=== PATIENT | female | born 1955 | race African-American/Black ===

== ENCOUNTER 2024-03-26 10:40 | Inpatient (IN) | payer MEDICARE, OTHER ==
[~2024-03-26] VITALS: Ht 152.4 cm; Wt 120.0 kg
[2024-03-26] MEDS: SODIUM CHLORIDE 0.9% 500 ML IVB ONE (11:15)
[2024-03-26] MEDS: ONDANSETRON HCL 4 MG/2 ML VIAL IV ONE ×2 (11:15→20:40)
--- NOTE | 2024-03-26 11:32 | ED.PDOC ---
GI ASSESSMENT HPI Comments 68-year-old female who comes in with chief complaint of vomiting since March 16. The patient denies any abdominal pain or diarrhea. She states that she tried some Dramamine but it does not seem to be helping. The patient is unable to keep any food down at this time. The patient denies any fever or chills. She was able to ambulate into the emergency department's with a cane. The patient recently moved from [place] and does not have a primary care doctor. Chief Complaint: Nausea/Vomiting Time Seen by MD: 10:47 Primary Care Provider: BERNADETTE Reviewed Notes: Nurses Notes, Medications, Allergies (Allergies to sulfa) Allergies: Coded Allergies: Sulfa Antibiotics (Verified Allergy, Unknown, 03/26/24) Information Source: Patient Mode of Arrival: The patient was ambulates with a cane Timing: Days Duration: Since onset Prehospital treatment: None Quality: None Vomitus: Bilious Stool: Normal Severity: Moderate Recent: None Recent Hx of: None Pain Location: None Modifying Factors: Nothing Associated sign and symptoms: Nausea, Vomiting Past Medical History PAST MEDICAL HISTORY: DM, High Lipids, HTN, Thyroid, TIA Surgical History: Hysterectomy Surgical History (Other): Nasal polyp surgery, right ankle surgery [employer] History: No Pertinent [employer] History Family History Family History: Family hx of HTN, Family hx of stroke Social History Smoker: Non-Smoker Alcohol: Denies ETOH Use Drugs: Denies Drug Use Lives In: Home Constitutional: reports: weakness; denies: chills, diaphoresis, fatigue, fever, malaise, sweats, others EENTM: denies: blurred vision, double vision, ear bleeding, ear discharge, ear drainage, ear pain, ear ringing, eye pain, eye redness, hearing loss, mouth pain, mouth swelling, nasal discharge, nose bleeding, nose congestion, nose pain, photophobia, tearing, throat pain, throat swelling, voice changes, others Respiratory: denies: cough, hemoptysis, orthopnea, SOB at rest, shortness of breath, SOB with excertion, stridor, wheezing, others Cardiovascular: denies: chest pain, dizzy spells, diaphoresis, Dyspnea on exertion, edema, irregular heart beat, left arm pain, lightheadedness, palpitations, PND, syncope, others Gastrointestinal: reports: nausea, vomiting; denies: abdomen distended, abdominal pain, blood streaked bowels, constipated, diarrhea, dysphagia, difficulty swallowing, hematemesis, melena, poor appetite, poor fluid intake, rectal bleeding, rectal pain, others Genitourinary: denies: abnormal vagina bleeding, burning, dyspareunia, dysuria, flank pain, frequency, hematuria, incontinence, pain, , vagina discharge, urgency, others Neurological: denies: dizziness, fainting, headache, left sided numbness, left sided weakness, numbness, paresthesia, pre-existing deficit, right sided numbness, right sided weakness, seizure, speech problems, tingling, tremors, weakness, others Musculoskeletal: denies: back pain, gout, joint pain, joint swelling, muscle pain, muscle stiffness, neck pain, others Integumetry: denies: bruises, change in color, change in hair/nails, dryness, laceration, lesions, lumps, rash, wounds, others Allergic/Immunocompromised: denies: Difficulty Healing, Frequent Infections, Hives, Itching, others Hematologic/Lymphatic: denies: anemia, blood clots, easy bleeding, easy bruising, swollen glands, others Endocrine: denies: excessive hunger, excessive sweating, excessive thirst, excessive urination, flushing, intolerance to cold, intolerance to heat, unexplained weight gain, unexplained weight loss, others Psychiatric: denies: anxiety, bipolar disorder, depression, hopeless, panic disorder, schizophrenia, sleepless, suicidal, others Physical Exam General Appearance: Moderate Distress HEENT: Normal ENT Inspection, Pharynx Normal, TMs Normal Neck: Full Range of Motion, Non-Tender, Normal, Normal Inspection Respiratory: Chest Non-Tender, Lungs Clear, No Accessory Muscle Use, No Respiratory Distress, Normal Breath Sounds Cardiovascular: No Edema, No JVD, No Murmur, No Gallop, Normal Peripheral Pulses, Regular Rate/Rhythm Breast Exam: Deferred Gastrointestinal: Diffuse, No Organomegaly, No Pulsatile Mass, Normal Bowel Sounds, Soft, Tenderness Genitalia: Deferred Pelvic: Deferred Rectal: Deferred Extremities: No calf tenderness, Normal capillary refill, Normal inspection, Normal range of motion, Non-tender, No pedal edema Musculoskeletal : Apperance: Normal Neurologic: Alert, agricultural commodities inspector II-XII nml as Tested, No Motor Deficits, Normal Affect, Normal Mood, No Sensory Deficits Cerebellar Function: Normal Reflexes: Normal Skin: Dry, Normal Color, Warm Lymphatic: No Adenopathy Was a procedure done? Was a procedure done?: No GI differential Dx Differential Diagnosis: Gastritis/PUD, Gastroenteritis, Pancreatitis, UTI, Electrolyte Imbalance, Food Poisoning X-Ray, Labs, Meds, VS Vital Signs Date Time Temp Pulse Resp B/P (MAP) Pulse Ox O2 Delivery O2 Flow Rate FiO2 03/26/24 10:55 97.5 94 18 151/70 (97) 97 Lab Test 03/26/24 12:01 03/26/24 10:59 Range/Units White Blood Count 8.6 4.4-10.8 10^3/uL Red Blood Count 4.97 4.0-5.20 10^6/uL Hemoglobin 15.0 12.2-16.2 g/dL Hematocrit 45.7 36.0-46.0 % Mean Corpuscular Volume 92.0 80.0-100.0 fL Mean Corpuscular Hemoglobin 30.1 28.0-32.0 pg Mean Corpuscular Hemoglobin Concent 32.7 32.0-36.0 g/dL Red Cell Distribution Width 15.4 H 11.8-14.3 % Platelet Count 268 140-450 10^3/uL Mean Platelet Volume 8.8 6.9-10.8 fL Neutrophils (%) (Auto) 56.1 37.0-80.0 % Lymphocytes (%) (Auto) 34.3 10.0-50.0 % Monocytes (%) (Auto) 6.0 0.0-12.0 % Eosinophils (%) (Auto) 2.5 0.0-7.0 % Basophils (%) (Auto) 1.1 0.0-2.0 % Neutrophils # (Auto) 4.8 1.6-8.6 10 ^3/uL Lymphocytes # (Auto) 3.0 0.4-5.4 10 ^3/uL Monocytes # (Auto) 0.5 0-1.3 10 ^3/uL Eosinophils # (Auto) 0.2 0-0.8 10 ^3/uL Basophils # (Auto) 0.1 0-0.2 10 ^3/uL Nucleated Red Blood Cells 0.1 % Sodium Level 138 136-145 mmol/L Potassium Level 2.9 L 3.5-5.1 mmol/L Chloride Level 101 98-107 mmol/L Carbon Dioxide Level 28 20-31 mmol/L Anion Gap 9 5-15 Blood Urea Nitrogen 8 L 9-23 mg/dL Creatinine 0.88 0.550-1.02 mg/dL Glomerular Filtration Rate Calc 71 >90 mL/min BUN/Creatinine Ratio 9.1 L 10.0-20.0 Serum Glucose 109 H 74-106 mg/dL Calcium Level 10.5 H 8.7-10.4 mg/dL Total Bilirubin 0.7 0.2-1.0 mg/dL Aspartate Amino Transferase (AST) 19 13-40 U/L Alanine Aminotransferase (ALT) 20 7-40 U/L Alkaline Phosphatase 82 46-116 U/L Total Protein 7.7 5.7-8.2 g/dL Albumin 4.8 3.2-4.8 g/dL Lipase 26 12-53 U/L POC Glucose 107 H 70-106 mg/dl Current Medications Medications (Trade) Dose Ordered Sig/Paula Route Start Time Stop Time Status Last Admin Ondansetron HCl (Zofran) 4 mg ONCE ONCE IV 03/26/24 11:15 03/26/24 11:16 DC 03/26/24 11:15 Sodium Chloride 500 ml @ 500 mls/hr Q1H ONCE IVB 03/26/24 11:15 03/26/24 12:14 DC 03/26/24 11:15 IV Hep-Lock was established The patient was being given normal saline as a bolus The patient was being given Zofran 4 mg IV push for the nausea and vomiting The patient has a CBC which is within normal limits The chemistry panel is within normal limits The lipase is within normal limits The patient was being admitted to the hospitalist. Images Reviewed?: Images reviewed and evaluated by me Time of 1ST Reevaluation: 11:31 Reevaluation 1ST: Unchanged Patient Education/Counseling: Diagnosis, Treatment, Prognosis Family Education/Counseling: No Family Present Departure 1 Departure Time of Disposition: 12:56 Impression: Primary Impression: Intractable vomiting Additional Impression: Generalized weakness Disposition: ADMITTED INPATIENT Admit to: Med Surg Condition: Fair Critical Care Note Critical Care Time?: No Stability Stability form required: Yes Unstable for transfer: ED Physician Assesment (Clinical assesment) Heart Score Heart Score: Heart Score Response (Comments) Value History N/A 0 EKG N/A 0 Age N/A 0 Risk Factors N/A 0 Troponin N/A 0 Total 0 LARISSA MONTGOMERY MD Mar 26, 2024 11:32
--- NOTE | 2024-03-26 11:34 | DVH ---
CLINICAL INFORMATION: 68 years old, Female; Intractable vomiting. TECHNIQUE: Axial CT images of the abdomen and pelvis were obtained without IV contrast. Coronal and sagittal reformatted images were obtained, reviewed, and stored. Evaluation of the parenchymal organs is limited without IV contrast. Evaluation of the bowel and mesentery is limited without oral contra st. All CT scans at this medical facility are performed using dose modulation techniques as appropria te to a performed exam including the following: Automated exposure control was utilized; adjustment o f the MA and/or KV according to patient size; and use of iterative reconstruction technique. CTDIvol = 26.16 mGy DLP = 1399.85 mGy-cm COMPARISON: None FINDINGS: Lung bases: Atelectasis in the lung bases. Liver: Grossly unremarkable in its noncontrast enhanced appearance. No abnormal density or focal les ion identified. Biliary: No calcified gallstones or biliary ductal dilatation. Spleen: Unremarkable. Pancreas: Moderately atrophic pancreas. Adrenal glands: Unremarkable. No mass. Kidneys: No hydronephrosis. No renal or ureteral calculi. 2.8 cm fluid density lesion in the mid to upper pole of the right kidney, likely a cyst Aorta/Vascular: Scattered atherosclerotic calcification. No abdominal aortic aneurysm. Retroperitoneum: No mass or lymphadenopathy. Bowel/mesentery: No small bowel obstruction. Appendix is not visualized. Scattered colonic diverticul a without adjacent inflammatory changes to suggest diverticulitis. Pelvic organs: Uterus is surgically absent. Bladder: Underdistended and not well evaluated. Abdominal wall: No mass or hernia. Bones: No acute fracture or suspicious intraosseous lesion. Postsurgical changes of posterior spinal fusion at L4-L5. IMPRESSION: 1. Colonic diverticulosis with no CT evidence for diverticulitis. Correlate with clinical findings. 2. No small bowel obstruction. 3. Additional nonacute findings as detailed above.
[2024-03-26 12:14] LABS: Basophils # (auto) 0.1 10 ^3/uL (0-0.2); Basophils % (auto) 1.1 % (0.0-2.0); Eosinophils # (auto) 0.2 10 ^3/uL (0-0.8); Eosinophils % (auto) 2.5 % (0.0-7.0); Hematocrit 45.7 % (36.0-46.0); Lymphocytes % (auto) 34.3 % (10.0-50.0); Mean Corpuscular Hemoglobin 30.1 pg (28.0-32.0); Mean Corpuscular Hgb Conc. 32.7 g/dL (32.0-36.0); Monocytes # (auto) 0.5 10 ^3/uL (0-1.3); Neutrophils # (auto) 4.8 10 ^3/uL (1.6-8.6); Neutrophils % (auto) 56.1 % (37.0-80.0); Nucleated Red Blood Cells % 0.1 %; Platelet Count (auto) 268 10^3/uL (140-450); Red Blood Cells 4.97 10^6/uL (4.0-5.20); Red Cell Distribution Width 15.4 % (11.8-14.3); White Blood Cell 8.6 10^3/uL (4.4-10.8)
[2024-03-26 12:39] LABS: Alanine Aminotransferase 20 U/L (7-40); Alkaline Phosphatase 82 U/L (46-116); Anion Gap 9 (5-15); Aspartate Aminotransferase 19 U/L (13-40); BUN/Creatinine Ratio 9.1 (10.0-20.0); Carbon Dioxide 28 mmol/L (20-31); Chloride 101 mmol/L (98-107); Lipase 26 U/L (12-53); Sodium 138 mmol/L (136-145)
[2024-03-26 12:40] LABS: Albumin 4.8 g/dL (3.2-4.8); Bilirubin, Total 0.7 mg/dL (0.2-1.0); Blood Urea Nitrogen 8 mg/dL (9-23); Calcium 10.5 mg/dL (8.7-10.4); Glucose 109 mg/dL (74-106); Potassium 2.9 mmol/L (3.5-5.1); Total Protein 7.7 g/dL (5.7-8.2)
[2024-03-26 13:56] LABS: Urine Bacteria None Seen /hpf (None Seen)
[2024-03-26 14:11] LABS: Urine Blood Negative /uL (Negative); Urine Clarity Turbid (Clear); Urine Color Yellow (Yellow); Urine Mucus FEW (None Seen); Urine Protein, UAD TRACE (Negative); Urine Squamous Epithelial Cell FEW /hpf (<5); Urine Urobilinogen 2 mg/dL (Negative); Urine WBC 13 /HPF (0-5)
[2024-03-26] MEDS: MORPHINE SULFATE 4 MG/ML SYR/VIAL IV ONE (20:40)
[2024-03-26] MEDS: POTASSIUM EFFERVESENT TAB 25 MEQ PO ONE ×2 (21:21→21:42)
[2024-03-26] MEDS: SODIUM CHLORIDE 0.9% 1,000 ML IV ONE (21:22)
[2024-03-26] MEDS: cefTRIAXone 1GM/50ML D5W 50 ML IV ONE (21:22)
[2024-03-26] MEDS: SODIUM CHLORIDE 0.9% 1,000 ML IV SCH (21:30)
[2024-03-26] MEDS ORDERED: MORPHINE SULFATE INJ 2 MG/ml SYRG IV PRN (21:30)
[2024-03-26] MEDS ORDERED: NITROGLYCERIN 0.4 MG SL TAB SL PRN (21:30)
[2024-03-26] MEDS: PANTOPRAZOLE 40 MG/10 ML VIAL INJ IV SCH (21:55)
[2024-03-26 22:12] LABS: Alanine Aminotransferase 21 U/L (7-40); Albumin 4.7 g/dL (3.2-4.8); Alkaline Phosphatase 78 U/L (46-116); Anion Gap 12 (5-15); Aspartate Aminotransferase 30 U/L (13-40); BUN/Creatinine Ratio 7.7 (10.0-20.0); Carbon Dioxide 23 mmol/L (20-31); Chloride 102 mmol/L (98-107); Lipase 27 U/L (12-53); Magnesium 2.1 mg/dL (1.6-2.6); Sodium 137 mmol/L (136-145)
[2024-03-26 22:13] LABS: Bilirubin, Total 0.6 mg/dL (0.2-1.0); Total Protein 7.4 g/dL (5.7-8.2)
[2024-03-26 22:14] LABS: Blood Urea Nitrogen 7 mg/dL (9-23); Calcium 10.4 mg/dL (8.7-10.4); Glucose 109 mg/dL (74-106); Potassium 3.4 mmol/L (3.5-5.1)
--- NOTE | 2024-03-26 22:28 | DVHHPRES ---
History of Present Illness Resident Creating Document: RADHA BENITO RESIDENT History of Present Illness CHLOE LANCASTER 68-year-old female with a PMH of HTN, type 2 DM, hypothyroidism, HLD, TIA presented to the ED with the chief complaints of intractable nausea and vomiting which is ongoing since last month. Patient reported sister and having nausea and vomiting out of no where last month, visited her PCP in [place] but no improvement she recently moved to here, worsening of nausea and vomiting for last 3 days which prompted her to visit ED. on my assessment patient denies reason food habits, sick contacts, recent travel, diarrhea, abdominal pain, diaphoresis and other acute symptoms. PMH: HTN since 15 years old( amlodipine HCTZ and losartan), type 2 DM on metformin, hypothyroidism on levothyroxine, HLD, TIA in 2017 (Plavix and aspirin) PSH: Hysterectomy, right ankle surgery, polypectomy nose Family history: Blood pressure, diabetes, stroke in mom Social history: Lives with the family. Denies smoking, alcohol and other drug abuse Allergies: No known allergies Home medications: Amlodipine, HCTZ, losartan, levothyroxine 110, aspirin, Plavix Review of Systems Review of Systems Patient seen and examined at the bedside. Patient reported nausea and vomiting, reported no new complaints at this time. CT abdominal pelvis showed colonic diverticulosis without evidence of diverticulitis Constitutional: Yes: Weakness Eyes: No: Pain, Vision change, Conjunctivae inflammation, Eyelid inflammation, Other, Redness ENT: No: Ear pain, Ear discharge, Nose pain, Nose discharge, Nose congestion, Mouth pain, Mouth swelling, Throat pain, Throat swelling, Other Cardiovascular: No: Chest Pain, Palpitations, Orthopnea, Paroxysmal Noc. Dyspnea, Edema, Lt Headedness, Other Gastrointestinal: Nausea, Vomiting Genitourinary: No Dysuria, No Frequency, No Incontinence, No Hematuria, No Retention, No Other Musculoskeletal: No: other, neck pain, shoulder pain, arm pain, back pain, hand pain, leg pain, foot pain Skin: No: Rash, Lesions, Jaundice, Bruising, Other Neurological: No: Weakness, Numbness, Incoordination, Change in speech, Confusion, Seizures, Other Allergies: Coded Allergies: Sulfa Antibiotics (Verified Allergy, Unknown, 03/26/24) Medications Current Medications Medications Dose Ordered Sig/Paula Route Start Time Stop Time Status Last Admin Dose Admin Ceftriaxone Sodium 50 ml @ 100 mls/hr DAILY IV 03/27/24 10:00 Sodium Chloride 1,000 ml @ 120 mls/hr Q8H20M IV 03/26/24 21:30 Ondansetron HCl 4 mg Q4HP PRN IV 03/26/24 21:30 Docusate Sodium 100 mg BIDPRN PRN PO 03/26/24 21:30 Enoxaparin Sodium 40 mg DAILY SC 03/27/24 10:00 Acetaminophen 650 mg Q6HP PRN PO 03/26/24 21:30 Nitroglycerin 0.4 mg Q5MINP PRN SL 03/26/24 21:30 Morphine Sulfate 2 mg Q30M PRN IV 03/26/24 21:30 Pantoprazole Sodium 40 mg DAILY IV 03/26/24 21:30 03/26/24 21:55 40 MG Exam Vital Signs Vital Signs Date Time Temp Pulse Resp B/P (MAP) Pulse Ox O2 Delivery O2 Flow Rate FiO2 03/26/24 21:10 85 18 152/85 03/26/24 17:49 96 03/26/24 14:49 Room Air 03/26/24 10:55 97.5 Exam Pt is lying on bed General Appearance: Alert, Oriented X3, Cooperative, mild distress HEENT: Atraumatic, Mucous membranes dry Respiratory: Clear to auscultation, Normal air movement, No added sounds Cardiovascular: Regular rate, Normal S1, Normal S2, No murmurs Abdominal: Normal bowel sounds, no tenderness, Soft, no distention Extremities: No edema, Normal pulses, No tenderness/swelling Skin: No Significant rash, except past surgical scars Neuro: Normal speech, sensorimotor deficits none Psych/Mental Status: Mental status NL, Mood NL Nurse was there as sharperone during examination Labs/Xrays Labs Test 03/26/24 21:40 03/26/24 12:07 03/26/24 12:01 03/26/24 10:59 Range/Units Sodium Level 137 136-145 mmol/L Potassium Level 3.4 L 3.5-5.1 mmol/L Chloride Level 102 98-107 mmol/L Carbon Dioxide Level 23 20-31 mmol/L Anion Gap 12 5-15 Blood Urea Nitrogen 7 L 9-23 mg/dL Creatinine 0.91 0.550-1.02 mg/dL Glomerular Filtration Rate Calc 68 >90 mL/min BUN/Creatinine Ratio 7.7 L 10.0-20.0 Serum Glucose 109 H 74-106 mg/dL Calcium Level 10.4 8.7-10.4 mg/dL Magnesium Level 2.1 1.6-2.6 mg/dL Total Bilirubin 0.6 0.2-1.0 mg/dL Aspartate Amino Transferase (AST) 30 13-40 U/L Alanine Aminotransferase (ALT) 21 7-40 U/L Alkaline Phosphatase 78 46-116 U/L Ammonia 27 11-32 umol/L B-Type Natriuretic Peptide 4.35 0-100 pg/mL Total Protein 7.4 5.7-8.2 g/dL Albumin 4.7 3.2-4.8 g/dL Lipase 27 12-53 U/L Urine Color Yellow Yellow Urine Clarity Turbid H Clear Urine pH 6.0 5.0-9.0 Urine Specific Grant 1.020 1.001-1.035 Urine Protein Trace H Negative Urine Ketones Trace Negative Urine Blood Negative Negative /uL Urine Nitrite Negative Negative Urine Bilirubin Negative Negative Urine Urobilinogen 2 H Negative mg/dL Urine Leukocyte Esterase 2+ Negative /uL Urine RBC 3 0 - 4 /hpf Urine Microscopic WBC 13 H 0-5 /HPF Urine Squamous Epithelial Cells Few <5 /hpf Urine Bacteria None seen None Seen /hpf Urine Mucus Few None Seen Urine Glucose Normal Normal mg/dL White Blood Count 8.6 4.4-10.8 10^3/uL Red Blood Count 4.97 4.0-5.20 10^6/uL Hemoglobin 15.0 12.2-16.2 g/dL Hematocrit 45.7 36.0-46.0 % Mean Corpuscular Volume 92.0 80.0-100.0 fL Mean Corpuscular Hemoglobin 30.1 28.0-32.0 pg Mean Corpuscular Hemoglobin Concent 32.7 32.0-36.0 g/dL Red Cell Distribution Width 15.4 H 11.8-14.3 % Platelet Count 268 140-450 10^3/uL Mean Platelet Volume 8.8 6.9-10.8 fL Neutrophils (%) (Auto) 56.1 37.0-80.0 % Lymphocytes (%) (Auto) 34.3 10.0-50.0 % Monocytes (%) (Auto) 6.0 0.0-12.0 % Eosinophils (%) (Auto) 2.5 0.0-7.0 % Basophils (%) (Auto) 1.1 0.0-2.0 % Neutrophils # (Auto) 4.8 1.6-8.6 10 ^3/uL Lymphocytes # (Auto) 3.0 0.4-5.4 10 ^3/uL Monocytes # (Auto) 0.5 0-1.3 10 ^3/uL Eosinophils # (Auto) 0.2 0-0.8 10 ^3/uL Basophils # (Auto) 0.1 0-0.2 10 ^3/uL Nucleated Red Blood Cells 0.1 % POC Glucose 107 H 70-106 mg/dl Assessment/Plan Assessment/Plan # hyperemesis unknown etiology -currently on IVF -CT showed findings of diverticulosis # Colonic Diverticulosis without signs of diverticulitis -evident on CT # Acute complicated UTI -evident on urinalysis -ordered urine culture -currently on Rocephin # Dehydration -currently on IVF -continuously monitoring # Severe Hypokalemia - Repleting - Monitor lab # hypothyroidism -ordered TSH -continue home dose of levothyroxine # morbid obesity with a BMI 49.5 -nutritional consult -counseling regarding lifestyle modifications for >17 minutes # Uncontrolled hypertension - monitor for now -hydralazine 10 mg p.r.n. for now # T 2 DM -Accu-Cheks Goals of care discussed with the patient for more than 29 minutes: Full code st atus Case discussed with Dr. Santiago, patient and nurse Plan discussed with: Patient My Orders Orders - RADHA BENITO RESIDENT Procedure Category Date Status Time Admit ADMIT 03/26/24 Transmitted 21:18 Allergies TERE 03/26/24 In Process 21:18 Code Status CODE 03/26/24 Transmitted 21:18 Sodium Chloride 0.9% PHA 03/26/24 In Process 21:30 Ondansetron Hcl PHA 03/26/24 In Process (Zofran) 21:30 Docusate Sodium PHA 03/26/24 In Process Capsule (Colace 21:30 Enoxaparin Sodium PHA 03/27/24 In Process (Lovenox) 10:00 Complete Blood Count LAB 03/27/24 Verified 04:00 Comprehensive LAB 03/27/24 Verified Metabolic Panel 04:00 Npo (Nothing By DIET 03/27/24 Transmitted Mouth) Diet Breakfast Condition: Stable [facility] 03/26/24 In Process 21:18 Acetaminophen Tablet [facility] 03/26/24 In Process (Tylenol Tablet) 21:30 Nitroglycerin [facility] 03/26/24 In Process Sublingual (Ntrostat 21:30 Morphine Sulfate [facility] 03/26/24 In Process Injection 21:30 Oxygen By Nasal RT 03/26/24 Transmitted Cannula 21:18 Stat Ekg For Chest [facility] 03/26/24 In Process Pain 21:18 Notify Md Of Changes [facility] 03/26/24 In Process From Base 21:18 Payroll Analyst For [facility] 03/26/24 In Process 24 Hours 21:18 Emergency Dysrhythmia [facility] 03/26/24 In Process Protocol 21:18 Rhythm Strips Once [facility] 03/26/24 In Process Every Shift 21:18 Drug Screen LAB 03/26/24 Logged 21:19 Pantoprazole [facility] 03/26/24 In Process (Protonix) 21:30 Date of Service: Mar 26, 2024 Billing Provider: TERRY SANTIAGO MD Common Visit Codes: [id number] INP/OBS CARE (HIGH) RADHA BENITO RESIDENT Mar 26, 2024 22:28 TERRY SANTIAGO MD Mar 27, 2024 23:22
[2024-03-26] MEDS ORDERED: DEXTROSE (50%) 50ML SYRG IV PRN (22:45)
[2024-03-26] MEDS ORDERED: hydrALAZINE HCL 20 MG/ML VL IV PRN (22:45)
[2024-03-26 23:00] VITALS: BP 153/78; PULSE 77; RESP 18; TEMP 98.1; O2SAT 97
[2024-03-26 23:19] VITALS: PULSE 79
[2024-03-27] VITALS (13 sets, daily range): BP systolic 127–149; BP diastolic 61–80; PULSE 76–92; RESP 15–20; TEMP 97.5–98.1; O2SAT 94–100
[2024-03-27 04:30] LABS: Phencyclidine Screen, Urine Neg (NEGATIVE)
[2024-03-27 04:39] LABS: Amphetamine Screen, Urine Neg (NEGATIVE); Barbiturate Scree,Urine Neg (NEGATIVE); Benzodiazephine Screen, Urine Neg (NEGATIVE); Cannabinoid Screen, Urine Neg (NEGATIVE); Cocaine Screen, Urine Neg (NEGATIVE); Opiate Scree,Urine Pos (NEGATIVE)
[2024-03-27] MEDS: DOCUSATE SOD 100 MG CAP PO PRN (05:35)
[2024-03-27] MEDS: LEVOTHYROXINE SODIUM 112 MCG TAB PO SCH (05:35)
[2024-03-27] MEDS: ACCU-CHEK COMFORT CURVE STRIP VI SCH (05:35)
[2024-03-27] MEDS: InsuLIN REG 1unit/0.01ml Soln (100units/ml) SC SCH (05:44)
[2024-03-27 07:34] LABS: Basophils # (auto) 0.1 10 ^3/uL (0-0.2); Basophils % (auto) 0.7 % (0.0-2.0); Eosinophils # (auto) 0.2 10 ^3/uL (0-0.8); Eosinophils % (auto) 2.9 % (0.0-7.0); Hematocrit 40.9 % (36.0-46.0); Hemoglobin 13.3 g/dL (12.2-16.2); Lymphocytes # (auto) 2.6 10 ^3/uL (0.4-5.4); Lymphocytes % (auto) 32.6 % (10.0-50.0); Mean Corpuscular Hemoglobin 30.4 pg (28.0-32.0); Mean Corpuscular Hgb Conc. 32.6 g/dL (32.0-36.0); Mean Corpuscular Volume 93.5 fL (80.0-100.0); Monocytes # (auto) 0.6 10 ^3/uL (0-1.3); Neutrophils # (auto) 4.4 10 ^3/uL (1.6-8.6); Neutrophils % (auto) 55.8 % (37.0-80.0); Nucleated Red Blood Cells % 0.2 %; Platelet Count (auto) 229 10^3/uL (140-450); Red Blood Cells 4.37 10^6/uL (4.0-5.20); Red Cell Distribution Width 15.7 % (11.8-14.3); White Blood Cell 7.8 10^3/uL (4.4-10.8)
[2024-03-27 07:45] LABS: Alanine Aminotransferase 21 U/L (7-40); Albumin 3.9 g/dL (3.2-4.8); Alkaline Phosphatase 71 U/L (46-116); Anion Gap 11 (5-15); Aspartate Aminotransferase 28 U/L (13-40); BUN/Creatinine Ratio 11.5 (10.0-20.0); Bilirubin, Total 0.6 mg/dL (0.2-1.0); Blood Urea Nitrogen 9 mg/dL (9-23); Calcium 9.4 mg/dL (8.7-10.4); Carbon Dioxide 25 mmol/L (20-31); Chloride 102 mmol/L (98-107); Glucose 92 mg/dL (74-106); Potassium 3.9 mmol/L (3.5-5.1); Sodium 138 mmol/L (136-145); Total Protein 5.9 g/dL (5.7-8.2)
[2024-03-27] MEDS: cefTRIAXone 1GM/50ML D5W 50 ML IV SCH (08:59)
[2024-03-27] MEDS: ENOXAPARIN SOD 40 MG/0.4 ML SYRINGE SC SCH (09:00)
[2024-03-27] MEDS ORDERED: BUPR-346 PO (11:11)
[2024-03-27] MEDS ORDERED: GABA-339 PO (11:11)
[2024-03-27] MEDS ORDERED: LEVO-849 PO (11:11)
[2024-03-27] MEDS ORDERED: CLOP75TA28 PO (11:11)
[2024-03-27] MEDS ORDERED: ASPI-498 OR (11:11)
[2024-03-27] MEDS ORDERED: AMLO1TAB22 PO (11:11)
[2024-03-27] MEDS ORDERED: CITA-77 PO (11:11)
[2024-03-27] MEDS ORDERED: LOSA-533 PO (11:11)
[2024-03-27] MEDS ORDERED: CARV25TA55 PO (11:11)
--- NOTE | 2024-03-27 13:51 | DVHPNRES ---
Progress Note Date Seen: Mar 27, 2024 Resident Creating Document: SOY YI RESIDENT Medical Necessity Reason Pt with a Central, PICC or Fol: No Subjective Review of Systems Patient is a 68-year-old female with past medical history of hypertension, diabetes, dyslipidemia, TIA and hypothyroidism who came in due to intractable nausea and vomiting that has been going on for the last 4-5 days. Per patient, she has been unable to keep any food down and we will vomit shortly after she eats anything, vomitus containing food and water. Patient notes he had similar symptoms last month when she went to the ER and was given antinausea medication. Patient notes that coughing makes her nausea and vomiting worse, last vomiting episode was yesterday evening. On review of systems patient is complaining of fatigue, productive cough, nausea and vomiting. CT abdomen pelvis largely unremarkable and showed diverticulosis without diverticulitis. UA showed leukocyte esterase 2+. Past surgical history: Hysterectomy Home medications: Amlodipine, aspirin, bupropion, carvedilol, citalopram, clopidogrel, gabapentin, levothyroxine, losartan Social & Personal history: Patient lives with her sister. Denies smoking. Denies using alcohol or any drugs. Allergies: Sulfa drugs Patient seen and examined at bedside. Patient is alert and oriented to time, place person and responding to all questions. General: Fatigue Eyes: No Pain, No Vision change, No Conjunctivae inflammation, No Eyelid inflammation, No Other, No Redness ENT: No Ear pain, No Ear discharge, No Nose pain, No Nose discharge, No Nose congestion, No Mouth pain, No Mouth swelling, No Throat pain, No Throat swelling, No Other Cardiovascular: No Chest Pain, No Palpitations, No Orthopnea, No Paroxysmal No Dyspnea, No Edema, No Lt Headedness, No Other Respiratory: Productive cough, No Shortness of breath, No SOB with exertion, No Wheezing, No Hemoptysis, No Pleuritic Pain, No Sputum, No Other Gastrointestinal: Nausea, Vomiting, No Abdominal Pain, No Diarrhea, C onstipation, No Melena, No Hematochezia, No Other Genitourinary: No Dysuria, No Frequency, No Incontinence, No Hematuria, No Retention, No Other Musculoskeletal: No other, No neck pain, No shoulder pain, No arm pain, No back pain, No hand pain, No leg pain, No foot pain Skin: No Rash, No Lesions, No Jaundice, No Bruising, No Other Objective vital signs Vital Sign Date Time Temp Pulse Resp B/P (MAP) Pulse Ox O2 Delivery O2 Flow Rate FiO2 03/27/24 09:00 97.6 88 15 140/68 (92) 95 97.6 03/27/24 08:15 Room Air* 0 21 Total Intake and Output 03/26/24 03/26/24 03/27/24 15:00 23:00 07:00 Intake Total 150 ml 100 ml Balance 150 ml 100 ml medications Current Medications Medications Dose Ordered Sig/Paula Route Start Time Stop Time Status Last Admin Dose Admin Ceftriaxone Sodium 50 ml @ 100 mls/hr DAILY IV 03/27/24 10:00 03/27/24 08:59 100 MLS/HR Sodium Chloride 1,000 ml @ 120 mls/hr Q8H20M IV 03/26/24 21:30 03/26/24 21:30 120 MLS/HR Ondansetron HCl 4 mg Q4HP PRN IV 03/26/24 21:30 Docusate Sodium 100 mg BIDPRN PRN PO 03/26/24 21:30 03/27/24 05:35 100 MG Enoxaparin Sodium 40 mg DAILY SC 03/27/24 10:00 03/27/24 09:00 40 MG Acetaminophen 650 mg Q6HP PRN PO 03/26/24 21:30 Nitroglycerin 0.4 mg Q5MINP PRN SL 03/26/24 21:30 Morphine Sulfate 2 mg Q30M PRN IV 03/26/24 21:30 Pantoprazole Sodium 40 mg DAILY IV 03/26/24 21:30 03/27/24 08:59 40 MG Diagnostic Test (Pha) 1 strip ACHS 03/27/24 07:00 03/27/24 11:30 1 STRIP Insulin Human Regular ACHS SC 03/27/24 07:00 Dextrose 50 ml UD PRN IV 03/26/24 22:45 Levothyroxine Sodium 112 mcg QAM@0600 PO 03/27/24 06:00 03/27/24 05:35 112 MCG Hydralazine HCl 10 mg Q6HP PRN IV 03/26/24 22:45 Examination General Appearance: Cooperative. Well developed. Well nourished. NAD Head Exam: Normal inspection Neck Exam: Normal inspection. Non-tender. Normal alignment Pulmonary/Respiratory: Chest non-tender. Clear bilateral breath sounds, no crackles, no wheezing. Cardiovascular/Chest: Regular rate and rhythm. No murmurs. No JVD. Peripheral Pulses: 2+ Radial (R). 2+ Radial (L). 2+ Pedal (R). 2+ Pedal (L) Abdominal Exam: Normal bowel sounds. Soft. normal abdomen, no visible veins, Nontender. No hepatospenomegaly. No masses Ankle Exam: Negative ankle edema Lower extremities: Negative lower extremity edema Neuro/Mental Status: A&O x4. Coherent. Thoughts/Psych: Normal thought pattern. Appropriate mood and affect. Good judgement and insight Skin Exam: Normal inspection. Normal color. Warm. Dry laboratory and microbiology Laboratory Tests 03/27/24 07:02 Test 03/27/24 07:02 Range/Units Serum Glucose 92 74-106 mg/dL Labs and/or images reviewed: Labs reviewed by me, Image(s) reviewed by me Problem List/Assessment/Plan Problem List/Assessment/Plan Acute complicated UTI Acute intractable nausea and vomiting due to above Hypokalemia due to above, resolved - CT abdomen pelvis: Colonic diverticulosis with a CT evidence of diverticulitis. No small bowel obstruction. - IV NS at 120 cc/hour - IV ceftriaxone - IV Zofran 4 mg as needed for nausea and vomiting, patient continues to vomit and unable to tolerate diet - IV Protonix Hypertension - resumed home medication amlodipine, currently holding other home antihypertensive owing to soft blood pressures Type 2 diabetes - mild sliding scale insulin Hypothyroidism Constipation: Last bowel movement on Saturday03/21/2024 - levothyroxine 112 mcg po - ordered serum TSH - miralax 17gm daily prn History of TIA - resumed home medication aspirin 81 mg - started atorvastatin 40 mg - holding home medication clopidogrel Depression, likely MDD - resumed home medications citalopram 20 mg p.o. daily PUD prophylaxis: protonix 40mg DVT prophylaxis: Levonox 40mg Goals of care: Full code, discussed for >16 minutes on 03/27/2024 Plan discussed with patient Plan discussed with Dr. Florian Plan discussed with: Patient, Other (RN) My Orders My Orders Orders - SOY YI RESIDENT Procedure Category Date Status Time Clear Liq Diet DIET 03/27/24 Transmitted Lunch Bipap/Cpap For Sleep RT 2/14/25 Logged Apnea 13:02 Date of Service: Mar 27, 2024 Billing Provider: MICHAEL FLORIAN MD Common Visit Codes: [id number] INP/OBS CARE(HIGH) SOY YI RESIDENT Mar 27, 2024 13:51 MICHAEL FLORIAN MD Mar 31, 2024 16:05
[2024-03-27] MEDS: ONDANSETRON HCL 4 MG/2 ML VIAL IV PRN (14:17)
[2024-03-27] MEDS ORDERED: POLYETHYLENE GLYCOL 17 GM PWDR PO PRN (18:15)
[2024-03-27] MEDS: ATORVASTATIN 20 MG TAB PO SCH (21:22)
[2024-03-28] VITALS (9 sets, daily range): BP systolic 116–156; BP diastolic 66–78; PULSE 73–90; RESP 18–20; TEMP 97.6–98.5; O2SAT 91–100
[2024-03-28] MEDS: guaiFENesin-DM 100/10mg/5ml SYR PO PRN (01:04)
[2024-03-28 06:44] LABS: Basophils # (auto) 0.1 10 ^3/uL (0-0.2); Basophils % (auto) 0.9 % (0.0-2.0); Eosinophils # (auto) 0.3 10 ^3/uL (0-0.8); Eosinophils % (auto) 3.9 % (0.0-7.0); Hematocrit 41.7 % (36.0-46.0); Hemoglobin 13.6 g/dL (12.2-16.2); Lymphocytes # (auto) 2.7 10 ^3/uL (0.4-5.4); Lymphocytes % (auto) 41.7 % (10.0-50.0); Mean Corpuscular Hemoglobin 30.3 pg (28.0-32.0); Mean Corpuscular Hgb Conc. 32.6 g/dL (32.0-36.0); Mean Corpuscular Volume 93.1 fL (80.0-100.0); Monocytes # (auto) 0.5 10 ^3/uL (0-1.3); Neutrophils % (auto) 45.5 % (37.0-80.0); Nucleated Red Blood Cells % 0.1 %; Platelet Count (auto) 231 10^3/uL (140-450); Red Blood Cells 4.48 10^6/uL (4.0-5.20); Red Cell Distribution Width 15.5 % (11.8-14.3); White Blood Cell 6.6 10^3/uL (4.4-10.8)
[2024-03-28 07:09] LABS: Chloride 102 mmol/L (98-107); Sodium 139 mmol/L (136-145)
[2024-03-28 07:10] LABS: Anion Gap 9 (5-15); Carbon Dioxide 28 mmol/L (20-31)
[2024-03-28 07:11] LABS: Calcium 9.9 mg/dL (8.7-10.4)
[2024-03-28 07:15] LABS: Glucose 91 mg/dL (74-106)
[2024-03-28 07:16] LABS: BUN/Creatinine Ratio 6.8 (10.0-20.0); Blood Urea Nitrogen < 5 mg/dL (9-23); Potassium 3.3 mmol/L (3.5-5.1)
[2024-03-28] MEDS: ASPirin-EC 81 mg tab PO SCH (09:52)
[2024-03-28] MEDS: amLODIPine BESYLATE 5 MG TAB PO SCH (09:52)
[2024-03-28] MEDS: CITALOPRAM HYDROBR 20 MG TAB PO SCH (09:52)
[2024-03-28] MEDS ORDERED: LEVOTHYROXINE SODIUM 100 MCG TAB PO SCH (10:00)
[2024-03-28] MEDS: POTASSIUM EFFERVESENT TAB 25 MEQ PO ONE (10:42)
--- NOTE | 2024-03-28 19:14 | DVHPNRES ---
Progress Note Date Seen: Mar 28, 2024 Resident Creating Document: CHRISTA CANDELARIA RESIDENT Medical Necessity Reason Pt with a Central, PICC or Fol: No Subjective Review of Systems Pretty Aranda is a 68-year-old female patient who presents to the ED due to intractable nausea and vomiting that has been going on for the last 4-5 days before her admission. Per patient, she has been unable to keep any food down and we will vomit shortly after she eats anything, vomitus containing food and water. Patient notes he had similar symptoms last month when she went to the ER and was given antinausea medication. Patient notes that coughing makes her nausea and vomiting worse. On review of systems patient is complaining of fatigue, productive cough, nausea and vomiting. Past medical history: Hypertension, diabetes, dyslipidemia, TIA, hypothyroidism, depression. Past surgical history: Hysterectomy Family history: Noncontributory Social & Personal history: Patient lives with her sister. Denies tobacco, alcohol and other drug abuse Allergies: Sulfa drugs Home medications: Amlodipine, aspirin, bupropion, carvedilol, citalopram, clopidogrel, gabapentin, levothyroxine, losartan Patient seen and examined at bedside. Currently complains of nausea and vomiting (could not tolerate jello per patient). We will not discharge until patient can tolerate soft mechanical diet. Optimize antinausea medication Objective vital signs Vital Sign Date Time Temp Pulse Resp B/P (MAP) Pulse Ox O2 Delivery O2 Flow Rate FiO2 03/28/24 17:00 98.3 73 20 116/70 (85) 91 98.3 03/28/24 08:10 Room Air* 0 21 Total Intake and Output 03/27/24 03/27/24 03/28/24 15:00 23:00 07:00 Intake Total 890 ml 220 ml Balance 890 ml 220 ml medications Current Medications Medications Dose Ordered Sig/Paula Route Start Time Stop Time Status Last Admin Dose Admin Ceftriaxone Sodium 50 ml @ 100 mls/hr DAILY IV 03/27/24 10:00 03/28/24 09:52 100 MLS/HR Sodium Chloride 1,000 ml @ 120 mls/hr Q8H20M IV 03/26/24 21:30 03/27/24 14:10 120 MLS/HR Ondansetron HCl 4 mg Q4HP PRN IV 03/26/24 21:30 03/28/24 09:50 4 MG Docusate Sodium 100 mg BIDPRN PRN PO 03/26/24 21:30 03/27/24 05:35 100 MG Enoxaparin Sodium 40 mg DAILY SC 03/27/24 10:00 03/28/24 09:50 40 MG Acetaminophen 650 mg Q6HP PRN PO 03/26/24 21:30 Pantoprazole Sodium 40 mg DAILY IV 03/26/24 21:30 03/28/24 09:49 40 MG Diagnostic Test (Pha) 1 strip ACHS 03/27/24 07:00 03/28/24 17:09 1 STRIP Insulin Human Regular ACHS SC 03/27/24 07:00 Dextrose 50 ml UD PRN IV 03/26/24 22:45 Levothyroxine Sodium 112 mcg QAM@0600 PO 03/27/24 06:00 03/28/24 05:32 112 MCG Amlodipine Besylate 10 mg DAILY PO 03/28/24 10:00 03/28/24 09:52 10 MG Aspirin 81 mg DAILY PO 03/28/24 10:00 03/28/24 09:52 81 MG Citalopram Hydrobromide 20 mg DAILY PO 03/28/24 10:00 03/28/24 09:52 20 MG Atorvastatin Calcium 40 mg HS PO 03/27/24 22:00 03/27/24 21:22 40 MG Polyethylene Glycol 17 gm DAILYPRN PRN PO 03/27/24 18:15 Guaifenesin/ Dextromethorphan 10 ml Q4HP PRN PO 03/28/24 00:45 03/28/24 01:04 10 ML Examination Patient lying in bed, in no acute distress General: Lucid, afebrile, mucosae are moist Cardiovascular: Normal S1 and S2. No murmurs, gallops or rubs Respiratory: Normal ventilation mechanics. Clear lung sounds on auscultation Abdomen: Soft, nontender, no organomegaly, normal bowel sounds MSK/skin: Mobilizes 4 limbs. Skin is dry and warm Neurological: Oriented in 3 spheres. No motor no sensitive deficits. Pupils are isocoric and reactive laboratory and microbiology Laboratory Tests 03/28/24 06:10 Test 03/28/24 06:10 Range/Units Serum Glucose 91 74-106 mg/dL Microbiology Date/Time Source Procedure Growth Status 03/27/24 04:00 Voided Urine Urine Culture - Preliminary Resulted Problem List/Assessment/Plan Problem List/Assessment/Plan # Acute complicated UTI Positive esterase in urine analysis Currently under empiric IV antibiotic (IV ceftriaxone) # Acute intractable nausea and vomiting due to above CT abdomen pelvis: Colonic diverticulosis with a CT evidence of diverticulitis. No small bowel obstruction. Continues with nausea and vomiting. We will prolonged admission until patient can tolerate soft mechanical diet Currently on IV fluids (NS 120 ml/hour), IV Protonix and IV Zofran # Hypokalemia due to above Replenish # Hypertension Currently continue amlodipine, hold rest of antihypertensive medication due to soft BP # Type 2 diabetes Mild sliding scale insulin # Hypothyroidism Currently on levothyroxine 112 mcg daily. TSH mildly elevated # Constipation Miralax 17gm daily prn Last bowel movement: scarce bowel movement on 03/28/2024 # History of TIA Continue aspirin Initiate atorvastatin Discontinued clopidogrel # Depression Resumed home medications citalopram 20 mg p.o. daily PUD prophylaxis: protonix 40mg DVT prophylaxis: Levonox 40mg Goals of care: Full code, discussed for >16 minutes on 03/27/[address] Suazo, patient and nurses: Patient continues with nausea and vomiting (particularly did not tolerate jello in the a.m.), indicated schedule Zofran four when patient eats, we will try to progress diet. Postpone discharge until patient can tolerate her diet. She did have a small bowel movement today. If patient continues not tolerating diet, may require Gastrografin/small-bowel series to evaluate obstruction. Continue with IV antibiotics for UTI Plan discussed with: Patient, Other (Nurses) My Orders My Orders Orders - CHRISTA CANDELARIA RESIDENT Procedure Category Date Status Time Full Liq Diet DIET 03/28/24 Transmitted Dinner Dietary Evaluation Review Recommendations by RD: Dietary education by RD Comments: 1. Provided verbal and written diet education re: high-fiber, adequate fluid given diverticulosis on CT 2. Recommend timely diet advancement as medically able to Regular diet 3. Monitor and treat GI symptoms Expected Outcomes/Goals: Adherence to diet rec's, improved stooling Date of Service: Mar 28, 2024 Billing Provider: ROSCOE SUAZO MD Common Visit Codes: [id number] INP/OBS CARE(HIGH) CHRISTA CANDELARIA RESIDENT Mar 28, 2024 19:14 ROSCOE SUAZO MD Mar 29, 2024 09:37
[2024-03-28] MEDS: ACETAMINOPHEN 325 MG TAB PO PRN (21:22)
[2024-03-29 01:00] VITALS: BP 125/77; PULSE 80; RESP 18; TEMP 98.4; O2SAT 95
[2024-03-29 05:00] VITALS: BP 141/74; PULSE 80; RESP 18; TEMP 97.9; O2SAT 95
[2024-03-29 06:40] LABS: Basophils # (auto) 0 10 ^3/uL (0-0.2); Basophils % (auto) 0.7 % (0.0-2.0); Eosinophils # (auto) 0.3 10 ^3/uL (0-0.8); Eosinophils % (auto) 4.1 % (0.0-7.0); Hematocrit 39.7 % (36.0-46.0); Hemoglobin 12.9 g/dL (12.2-16.2); Lymphocytes # (auto) 2.6 10 ^3/uL (0.4-5.4); Lymphocytes % (auto) 43.1 % (10.0-50.0); Mean Corpuscular Hgb Conc. 32.3 g/dL (32.0-36.0); Mean Corpuscular Volume 92.9 fL (80.0-100.0); Monocytes # (auto) 0.5 10 ^3/uL (0-1.3); Monocytes % (auto) 7.8 % (0.0-12.0); Neutrophils # (auto) 2.7 10 ^3/uL (1.6-8.6); Neutrophils % (auto) 44.3 % (37.0-80.0); Nucleated Red Blood Cells % 0.1 %; Platelet Count (auto) 225 10^3/uL (140-450); Red Blood Cells 4.28 10^6/uL (4.0-5.20); Red Cell Distribution Width 15.2 % (11.8-14.3); White Blood Cell 6.1 10^3/uL (4.4-10.8)
[2024-03-29 06:52] LABS: Alanine Aminotransferase 20 U/L (7-40); Albumin 3.9 g/dL (3.2-4.8); Alkaline Phosphatase 70 U/L (46-116); Anion Gap 7 (5-15); Aspartate Aminotransferase 21 U/L (13-40); Bilirubin, Total 0.6 mg/dL (0.2-1.0); Calcium 9.8 mg/dL (8.7-10.4); Carbon Dioxide 27 mmol/L (20-31); Chloride 106 mmol/L (98-107); Glucose 93 mg/dL (74-106); Potassium 3.6 mmol/L (3.5-5.1); Sodium 140 mmol/L (136-145); Total Protein 6.2 g/dL (5.7-8.2)
[2024-03-29 06:53] LABS: BUN/Creatinine Ratio 7.2 (10.0-20.0); Blood Urea Nitrogen < 5 mg/dL (9-23)
[2024-03-29 08:00] VITALS: PULSE 75
[2024-03-29] MEDS: ONDANSETRON HCL 4 MG/2 ML VIAL IV SCH (08:00)
[2024-03-29 09:08] VITALS: BP 126/81; PULSE 82; RESP 18; TEMP 97.9; O2SAT 97
--- NOTE | 2024-03-29 11:22 | DVHPNRES ---
Progress Note Date Seen: Mar 29, 2024 Resident Creating Document: SOY YI RESIDENT Medical Necessity Reason Pt with a Central, PICC or Fol: No Subjective Review of Systems Pretty Aranda is a 68-year-old female patient who presents to the ED due to intractable nausea and vomiting that has been going on for the last 4-5 days before her admission. Per patient, she has been unable to keep any food down and we will vomit shortly after she eats anything, vomitus containing food and water. Patient notes he had similar symptoms last month when she went to the ER and was given antinausea medication. Patient notes that coughing makes her nausea and vomiting worse. On review of systems patient is complaining of fatigue, productive cough, nausea and vomiting. Past medical history: Hypertension, diabetes, dyslipidemia, TIA, hypothyroidism, depression. Past surgical history: Hysterectomy Family history: Noncontributory Social & Personal history: Patient lives with her sister. Denies tobacco, alcohol and other drug abuse Allergies: Sulfa drugs Home medications: Amlodipine, aspirin, bupropion, carvedilol, citalopram, clopidogrel, gabapentin, levothyroxine, losartan Patient seen and examined at bedside. Currently complains of continued nausea, last vomiting episode was yesterday in the evening. We will not discharge until patient can tolerate soft mechanical diet. Optimize antinausea medication Objective vital signs Vital Sign Date Time Temp Pulse Resp B/P (MAP) Pulse Ox O2 Delivery O2 Flow Rate FiO2 03/29/24 09:55 126/81 03/29/24 09:08 97.9 82 18 97 97.9 03/28/24 20:00 Room Air* 0 21 Total Intake and Output 03/28/24 03/28/24 03/29/24 15:00 23:00 07:00 Intake Total 668 ml 300 ml 850 ml Output Total 600 ml Balance 668 ml -300 ml 850 ml medications Current Medications Medications Dose Ordered Sig/Paula Route Start Time Stop Time Status Last Admin Dose Admin Ceftriaxone Sodium 50 ml @ 100 mls/hr DAILY IV 03/27/24 10:00 03/29/24 09:54 100 MLS/HR Sodium Chloride 1,000 ml @ 120 mls/hr Q8H20M IV 03/26/24 21:30 03/27/24 14:10 120 MLS/HR Docusate Sodium 100 mg BIDPRN PRN PO 03/26/24 21:30 03/27/24 05:35 100 MG Enoxaparin Sodium 40 mg DAILY SC 03/27/24 10:00 03/29/24 09:54 40 MG Acetaminophen 650 mg Q6HP PRN PO 03/26/24 21:30 03/29/24 09:55 650 MG Pantoprazole Sodium 40 mg DAILY IV 03/26/24 21:30 03/29/24 09:54 40 MG Diagnostic Test (Pha) 1 strip ACHS 03/27/24 07:00 03/29/24 11:06 1 STRIP Insulin Human Regular ACHS SC 03/27/24 07:00 Dextrose 50 ml UD PRN IV 03/26/24 22:45 Levothyroxine Sodium 112 mcg QAM@0600 PO 03/27/24 06:00 03/29/24 05:25 112 MCG Amlodipine Besylate 10 mg DAILY PO 03/28/24 10:00 03/29/24 09:55 10 MG Aspirin 81 mg DAILY PO 03/28/24 10:00 03/29/24 09:56 81 MG Citalopram Hydrobromide 20 mg DAILY PO 03/28/24 10:00 03/29/24 09:55 20 MG Atorvastatin Calcium 40 mg HS PO 03/27/24 22:00 03/28/24 21:16 40 MG Polyethylene Glycol 17 gm DAILYPRN PRN PO 03/27/24 18:15 Guaifenesin/ Dextromethorphan 10 ml Q4HP PRN PO 03/28/24 00:45 03/29/24 09:57 10 ML Ondansetron HCl 4 mg TIDWM IV 03/29/24 08:00 03/29/24 11:05 4 MG laboratory and microbiology Laboratory Tests 03/29/24 05:53 Test 03/29/24 05:53 Range/Units Serum Glucose 93 74-106 mg/dL Microbiology Date/Time Source Procedure Growth Status 03/27/24 04:00 Voided Urine Urine Culture - Preliminary Resulted Labs and/or images reviewed: Labs reviewed by me, Image(s) reviewed by me Problem List/Assessment/Plan Problem List/Assessment/Plan Acute complicated UTI Acute intractable nausea and vomiting due to above Hypokalemia due to above, resolved - CT abdomen pelvis: Colonic diverticulosis with a CT evidence of diverticulitis. No small bowel obstruction. - IV NS at 120 cc/hour - IV ceftriaxone - IV Zofran 4 mg as needed for nausea and vomiting, patient continues to vomit and unable to tolerate diet - IV Protonix Hypertension - resumed home medication amlodipine, currently holding other home antihypertensive owing to soft blood pressures Type 2 diabetes - mild sliding scale insulin Hypothyroidism Constipation: Last bowel movement on Saturday03/21/2024 - small BM on 03/28/2024, mildly decreased bowel sounds in all 4 quadrant - levothyroxine 112 mcg po - ordered serum TSH - miralax 17gm daily prn History of TIA - resumed home medication aspirin 81 mg - started atorvastatin 40 mg - holding home medication clopidogrel Depression, likely MDD - resumed home medications citalopram 20 mg p.o. daily PUD prophylaxis: protonix 40mg DVT prophylaxis: Levonox 40mg Goals of care: Full code, discussed for >16 minutes on 03/27/2024 Plan discussed with patient Plan discussed with Dr. Murcia Plan discussed with Dr. Suazo, patient and nurses: Patient continues with nausea and vomiting (particularly did not tolerate jello in the a.m.), indicated schedule Zofran four when patient eats, we will try to progress diet. Postpone discharge until patient can tolerate her diet. She did have a small bowel movement today. If patient continues not tolerating diet, may require Gastrografin/small-bowel series to evaluate obstruction. Continue with IV antibiotics for UTI Plan discussed with: Patient, Other (RN) Dietary Evaluation Review Recommendations by RD: Dietary education by RD Comments: 1. Provided verbal and written diet education re: high-fiber, adequate fluid given diverticulosis on CT 2. Recommend timely diet advancement as medically able to Regular diet 3. Monitor and treat GI symptoms Expected Outcomes/Goals: Adherence to diet rec's, improved stooling SOY YI RESIDENT Mar 29, 2024 11:22
[2024-03-29 13:00] VITALS: BP 134/58; PULSE 81; RESP 18; TEMP 98; O2SAT 91
[2024-03-29] MEDS ORDERED: CEPH500C PO (14:34)
[2024-03-29] MEDS ORDERED: ONDA-155 PO (14:34)
--- NOTE | 2024-03-29 14:37 | DVHDSRES ---
Discharge Summary Date of Admission Resident Creating Document: SOY YI RESIDENT Mar 26, 2024 at 21:18 Date of Discharge: Mar 29, 2024 Admitting Diagnosis Acute intractable nausea and vomiting Labs/Diagnostic Data: Laboratory Results Test 03/29/24 10:53 03/29/24 05:53 03/28/24 06:10 03/27/24 07:02 POC Glucose 125 mg/dl (70-106) White Blood Count 6.1 10^3/uL (4.4-10.8) Red Blood Count 4.28 10^6/uL (4.0-5.20) Hemoglobin 12.9 g/dL (12.2-16.2) Hematocrit 39.7 % (36.0-46.0) Mean Corpuscular Volume 92.9 fL (80.0-100.0) Mean Corpuscular Hemoglobin 30.0 pg (28.0-32.0) Mean Corpuscular Hemoglobin Concent 32.3 g/dL (32.0-36.0) Red Cell Distribution Width 15.2 % (11.8-14.3) Platelet Count 225 10^3/uL (140-450) Mean Platelet Volume 8.7 fL (6.9-10.8) Neutrophils (%) (Auto) 44.3 % (37.0-80.0) Lymphocytes (%) (Auto) 43.1 % (10.0-50.0) Monocytes (%) (Auto) 7.8 % (0.0-12.0) Eosinophils (%) (Auto) 4.1 % (0.0-7.0) Basophils (%) (Auto) 0.7 % (0.0-2.0) Neutrophils # (Auto) 2.7 10 ^3/uL (1.6-8.6) Lymphocytes # (Auto) 2.6 10 ^3/uL (0.4-5.4) Monocytes # (Auto) 0.5 10 ^3/uL (0-1.3) Eosinophils # (Auto) 0.3 10 ^3/uL (0-0.8) Basophils # (Auto) 0 10 ^3/uL (0-0.2) Nucleated Red Blood Cells 0.1 % Sodium Level 140 mmol/L (136-145) Potassium Level 3.6 mmol/L (3.5-5.1) Chloride Level 106 mmol/L (98-107) Carbon Dioxide Level 27 mmol/L (20-31) Anion Gap 7 (5-15) Blood Urea Nitrogen < 5 mg/dL (9-23) Creatinine 0.69 mg/dL (0.550-1.02) Glomerular Filtration Rate Calc 94 mL/min (>90) BUN/Creatinine Ratio 7.2 (10.0-20.0) Serum Glucose 93 mg/dL (74-106) Calcium Level 9.8 mg/dL (8.7-10.4) Total Bilirubin 0.6 mg/dL (0.2-1.0) Aspartate Amino Transferase (AST) 21 U/L (13-40) Alanine Aminotransferase (ALT) 20 U/L (7-40) Alkaline Phosphatase 70 U/L (46-116) Total Protein 6.2 g/dL (5.7-8.2) Albumin 3.9 g/dL (3.2-4.8) Thyroid Stimulating Hormone (TSH) 5.28 uIU/mL (0.55-4.78) Test 03/27/24 04:00 03/26/24 21:40 03/26/24 12:07 Urine Opiates Screen Pos (NEGATIVE) Urine Fentanyl Screen Neg (NEGATIVE) Urine Barbiturates Screen Neg (NEGATIVE) Urine Phencyclidine Screen Neg (NEGATIVE) Urine Amphetamines Screen Neg (NEGATIVE) Urine Benzodiazepines Screen Neg (NEGATIVE) Urine Cocaine Screen Neg (NEGATIVE) Urine Cannabinoids Screen Neg (NEGATIVE) Hemoglobin A1c 5.8 % A1C (<5.7) Magnesium Level 2.1 mg/dL (1.6-2.6) Ammonia 27 umol/L (11-32) B-Type Natriuretic Peptide 4.35 pg/mL (0-100) Lipase 27 U/L (12-53) Urine Color Yellow (Yellow) Urine Clarity Turbid (Clear) Urine pH 6.0 (5.0-9.0) Urine Specific [place]ater[place] 1.020 (1.001-1.035) Urine Protein Trace (Negative) Urine Ketones Trace (Negative) Urine Blood Negative /uL (Negative) Urine Nitrite Negative (Negative) Urine Bilirubin Negative (Negative) Urine Urobilinogen 2 mg/dL (Negative) Urine Leukocyte Esterase 2+ /uL (Negative) Urine RBC 3 /hpf (0 - 4) Urine Microscopic WBC 13 /HPF (0-5) Urine Squamous Epithelial Cells Few /hpf (<5) Urine Bacteria None seen /hpf (None Seen) Urine Mucus Few (None Seen) Urine Glucose Normal mg/dL (Normal) Other Laboratory Tests 03/29/24 05:53 Brief Hx & Hospital Course: Patient is a 68-year-old female with past medical history of hypertension, diabetes, dyslipidemia, TIA and hypothyroidism who came in due to intractable nausea and vomiting that has been going on for the last 4-5 days. Per patient, she has been unable to keep any food down and we will vomit shortly after she eats anything, vomitus containing food and water. Patient notes he had similar symptoms last month when she went to the ER and was given antinausea medication. Patient notes that coughing makes her nausea and vomiting worse, last vomiting episode was yesterday evening. On review of systems patient is complaining of fatigue, productive cough, nausea and vomiting. CT abdomen pelvis largely unremarkable and showed diverticulosis without diverticulitis. UA showed leukocyte esterase 2+. Hospital course: Patient was started on IV NS at 120 cc/hour, IV ceftriaxone, IV Zofran and IV Protonix. Home medication amlodipine was continued while the other antihypertensives were stopped as patient's blood pressure was running low. Mild sliding scale insulin was continued on home medication levothyroxine 112 mcg, aspirin, atorvastatin were also continued. Home medication clopidogrel was stopped. For patient's constipation, she was given MiraLax 17 g daily as needed. On the day of discharge, patient was able to tolerate a full liquid diet without having any nausea or vomiting, patient had stable vital signs and appeared well. She was discharged home with cephalexin 500 mg q.i.d. for 3 days and Zofran 4 mg as needed for nausea and vomiting. Her hospital course was uncomplicated. General Appearance: Cooperative. Well developed. Well nourished. NAD Head Exam: Normal inspection Neck Exam: Normal inspection. Non-tender. Normal alignment Pulmonary/Respiratory: Chest non-tender. Clear bilateral breath sounds, no crackles, no wheezing. Cardiovascular/Chest: Regular rate and rhythm. No murmurs. No JVD. Peripheral Pulses: 2+ Radial (R). 2+ Radial (L). 2+ Pedal (R). 2+ Pedal (L) Abdominal Exam: Normal bowel sounds. Soft. normal abdomen, no visible veins, Nontender. No hepatospenomegaly. No masses Ankle Exam: Negative ankle edema Lower extremities: Negative lower extremity edema Neuro/Mental Status: A&O x4. Coherent. Thoughts/Psych: Normal thought pattern. Appropriate mood and affect. Good judgement and insight Skin Exam: Normal inspection. Normal color. Warm. Dry Condition at Discharge: Good Final Diagnosis/Problems List Acute complicated UTI Acute intractable nausea and vomiting due to above Hypokalemia due to above, resolved Hypertension Type 2 diabetes Hypothyroidism Constipation History of TIA Depression, likely MDD Discharge Disposition: Home Discharge Instruct/Medications Diet: Cardiac 2g Na,low cholest, See Comment Diet comment: Continues mechanically soft diet, advance diet as tolerated Activity: No Restrictions, As Tolerated Follow Up/Referral: Please follow up with PCP in 1-2 weeks Medications: Cephalexin 500 mg 4 times a day for 3 days Ondansetron 4 mg tablet as needed for nausea/vomiting Discharge Statement: "Patient was advised to return to the ER or call 911 if any headaches, dizziness, shortness of breath, chest pain, abdominal pain, bleeding, fevers, or worsening of medical condition. Patient was counseled about treatment plan, medications, possible side effects, patientverbalized understanding. All questions were answered to the best of my ability. This discharge took greater then 30 minutes in planning, reviewing documentation, counseling the patient, and discussing with other team members." ASSESSMENT ASSESSMENT Assessment Acute complicated UTI Acute intractable nausea and vomiting due to above Hypokalemia due to above, resolved Hypertension Type 2 diabetes Hypothyroidism Constipation History of TIA Depression, likely MDD Date of Service: Mar 29, 2024 Billing Provider: ROSCOE MEADE MD Common Visit Codes: 34455-LPA/OBS DISCH DAY >30min SOY YI RESIDENT Mar 29, 2024 14:37 ROSCOE MEADE MD Mar 29, 2024 22:27
[2024-03-29 15:30] VITALS: BP 126/81
[2024-03-30 11:01] LABS: T3 Total 0.98 ng/mL (0.60-1.81)
[2024-03-30 11:02] LABS: Free T4 (Free Thyroxine) 1.36 ng/dL (0.89-1.76)
== END 2024-03-29 16:38 | disposition home or self-care (01) | DRG 690 ==
LOC: ER 10:40 → OVERFLOW 21:18 → TELE-CENTR 23:00
PROVIDERS: ADMIT Student in an Organized Health Care Education/Training Program; ATTEND Student in an Organized Health Care Education/Training Program
PROC: 5A09357 Assistance with Respiratory Ventilation, Less than 24 Consecutive Hours, Continuous Positive Airway Pressure (ICD-10-PCS; principal; 2024-03-27)
DX: N30.00 Acute cystitis without hematuria (principal); Z68.42 Body mass index [BMI] 45.0-49.9, adult; E87.6 Hypokalemia; E86.0 Dehydration; E03.9 Hypothyroidism, unspecified; K59.00 Constipation, unspecified; E11.9 Type 2 diabetes mellitus without complications; I10 Essential (primary) hypertension; E66.01 Morbid (severe) obesity due to excess calories; F32.9 Major depressive disorder, single episode, unspecified; K57.30 Diverticulosis of large intestine without perforation or abscess without bleeding; Z88.2 Allergy status to sulfonamides; Z82.49 Family history of ischemic heart disease and other diseases of the circulatory system; Z82.3 Family history of stroke; Z86.73 Personal history of transient ischemic attack (TIA), and cerebral infarction without residual deficits; Z90.710 Acquired absence of both cervix and uterus; Z79.4 Long term (current) use of insulin
CPT/HCPCS: 36415; 74176; 80048; 80053; 80307; 81001; 82140; 82962; 83036; 83690; 83735; 83880; 84439; 84443; 84480; 85025; 87086; 94660; 96365; 96375; 96376; G0378; J2405; J2470

== ENCOUNTER 2024-05-14 03:03 | Inpatient (IN) | payer OTHER ==
[2024-05-14] VITALS (7 sets, daily range): BP systolic 119–165; BP diastolic 59–80; PULSE 82–91; RESP 14–19; TEMP 97.4–98; O2SAT 98–99
[~2024-05-14] VITALS: Ht 172.7 cm; Wt 117.5 kg
[~2024-05-14 03:03] MED LIST: AMLO1TAB22 PO; ASPI-498 OR; BUPR-346 PO; CARV25TA55 PO; CEPH500C PO; CITA-77 PO; CLOP75TA28 PO; GABA-339 PO; LEVO-849 PO; LOSA-533 PO; ONDA-155 PO
--- NOTE | 2024-05-14 03:22 | ED.PDOC ---
SOB-HPI HPI Comments 68-year-old female presents with a chief complaint of cough x 4 weeks. Patient states that she was seen and evaluated by [facility] and was referred to the ER for a chest x-ray. Patient denies any pain at this time. Patient is not coughing upon evaluation. Chief Complaint: Cough Time Seen by MD: 03:12 Primary Care Provider: SHORTYIES Reviewed notes: Medications, Allergies Information Source: Patient Mode of Arrival: Ambulatory Severity: Moderate Timing: Weeks Duration: Since onset Context: At Rest PE Risk Factors: None History of: None Prehospital treatment: None Associated Signs and Symptoms: Cough If cough with SOB: Non-Productive Past Medical History PAST MEDICAL HISTORY: DM, High Lipids, HTN, Thyroid, TIA Surgical History: Hysterectomy [employer] History: No Pertinent [employer] History Family History Family History: Family hx of HTN, Family hx of stroke Social History Smoker: Non-Smoker Alcohol: Denies ETOH Use Drugs: Denies Drug Use Lives In: Home Constitutional: denies: chills, diaphoresis, fatigue, fever, malaise, sweats, weakness, others EENTM: denies: blurred vision, double vision, ear bleeding, ear discharge, ear drainage, ear pain, ear ringing, eye pain, eye redness, hearing loss, mouth pain, mouth swelling, nasal discharge, nose bleeding, nose congestion, nose pain, photophobia, tearing, throat pain, throat swelling, voice changes, others Respiratory: reports: cough; denies: hemoptysis, orthopnea, SOB at rest, shortness of breath, SOB with excertion, stridor, wheezing, others Cardiovascular: denies: chest pain, dizzy spells, diaphoresis, Dyspnea on exertion, edema, irregular heart beat, left arm pain, lightheadedness, palpitations, PND, syncope, others Gastrointestinal: denies: abdomen distended, abdominal pain, blood streaked bowels, constipated, diarrhea, dysphagia, difficulty swallowing, hematemesis, melena, nausea, poor appetite, poor fluid intake, rectal bleeding, rectal pain, vomiting, others Genitourinary: denies: abnormal vagina bleeding, burning, dyspareunia, dysuria, flank pain, frequency, hematuria, incontinence, pain, , vagina discharge, urgency, others Neurological: denies: dizziness, fainting, headache, left sided numbness, left sided weakness, numbness, paresthesia, pre-existing deficit, right sided numbness, right sided weakness, seizure, speech problems, tingling, tremors, weakness, others Musculoskeletal: denies: back pain, gout, joint pain, joint swelling, muscle pain, muscle stiffness, neck pain, others Integumetry: denies: bruises, change in color, change in hair/nails, dryness, laceration, lesions, lumps, rash, wounds, others Allergic/Immunocompromised: denies: Difficulty Healing, Frequent Infections, Hives, Itching, others Hematologic/Lymphatic: denies: anemia, blood clots, easy bleeding, easy bruising, swollen glands, others Endocrine: denies: excessive hunger, excessive sweating, excessive thirst, excessive urination, flushing, intolerance to cold, intolerance to heat, unexplained weight gain, unexplained weight loss, others Psychiatric: denies: anxiety, bipolar disorder, depression, hopeless, panic disorder, schizophrenia, sleepless, suicidal, others All Other Systems: Reviewed and Negative Physical Exam General Appearance: No Apparent Distress, Normal HEENT: Normal ENT Inspection, Pharynx Normal, TMs Normal Neck: Full Range of Motion, Non-Tender, Normal, Normal Inspection Respiratory: Chest Non-Tender, Lungs Clear, No Accessory Muscle Use, No Respiratory Distress, Normal Breath Sounds Cardiovascular: No Edema, No JVD, No Murmur, No Gallop, Normal Peripheral Pulses, Regular Rate/Rhythm Breast Exam: Deferred Gastrointestinal: No Organomegaly, Non Tender, No Pulsatile Mass, Normal Bowel Sounds, Soft Genitalia: Deferred Pelvic: Deferred Rectal: Deferred Extremities: No calf tenderness, Normal capillary refill, Normal inspection, Normal range of motion, Non-tender, No pedal edema Musculoskeletal : Apperance: Normal Neurologic: Alert, lead operator II-XII nml as Tested, No Motor Deficits, Normal Affect, Normal Mood, No Sensory Deficits Cerebellar Function: Normal Reflexes: Normal Skin: Dry, Normal Color, Warm Lymphatic: No Adenopathy Was a procedure done? Was a procedure done?: No Differential Dx Differential Diagnosis: Asthma, CHF, COPD, Hypertension, Myocardial infarction, Pneumonia, Pulmonary Embolism, Respiratory Distress X-Ray, Labs, Meds, VS Vital Signs Date Time Temp Pulse Resp B/P (MAP) Pulse Ox O2 Delivery O2 Flow Rate FiO2 05/14/24 04:38 85 05/14/24 04:11 97.3 87 17 172/103 (126) 97 97.3 05/14/24 03:19 97.8 104 18 172/102 (125) 99 97.8 05/14/24 03:19 18 99 Room Air* 0 21 Lab Test 05/14/24 03:45 Range/Units White Blood Count 8.1 4.4-10.8 10^3/uL Red Blood Count 4.30 4.0-5.20 10^6/uL Hemoglobin 12.9 12.2-16.2 g/dL Hematocrit 39.1 36.0-46.0 % Mean Corpuscular Volume 90.9 80.0-100.0 fL Mean Corpuscular Hemoglobin 30.1 28.0-32.0 pg Mean Corpuscular Hemoglobin Concent 33.1 32.0-36.0 g/dL Red Cell Distribution Width 15.5 H 11.8-14.3 % Platelet Count 271 140-450 10^3/uL Mean Platelet Volume 8.7 6.9-10.8 fL Neutrophils (%) (Auto) 50.1 37.0-80.0 % Lymphocytes (%) (Auto) 40.0 10.0-50.0 % Monocytes (%) (Auto) 5.3 0.0-12.0 % Eosinophils (%) (Auto) 3.4 0.0-7.0 % Basophils (%) (Auto) 1.2 0.0-2.0 % Neutrophils # (Auto) 4.0 1.6-8.6 10 ^3/uL Lymphocytes # (Auto) 3.2 0.4-5.4 10 ^3/uL Monocytes # (Auto) 0.4 0-1.3 10 ^3/uL Eosinophils # (Auto) 0.3 0-0.8 10 ^3/uL Basophils # (Auto) 0.1 0-0.2 10 ^3/uL Nucleated Red Blood Cells 0.0 % Sodium Level 141 136-145 mmol/L Potassium Level 2.9 L 3.5-5.1 mmol/L Chloride Level 107 98-107 mmol/L Carbon Dioxide Level 24 20-31 mmol/L Anion Gap 10 5-15 Blood Urea Nitrogen 9 9-23 mg/dL Creatinine 0.80 0.550-1.02 mg/dL Glomerular Filtration Rate Calc 80 >90 mL/min BUN/Creatinine Ratio 11.3 10.0-20.0 Serum Glucose 119 H 74-106 mg/dL Calcium Level 10.0 8.7-10.4 mg/dL Total Bilirubin 0.5 0.2-1.0 mg/dL Aspartate Amino Transferase (AST) 18 13-40 U/L Alanine Aminotransferase (ALT) 15 7-40 U/L Alkaline Phosphatase 86 46-116 U/L Troponin I High Sensitivity 25 </=34 ng/L B-Type Natriuretic Peptide 10.94 0-100 pg/mL Total Protein 7.1 5.7-8.2 g/dL Albumin 4.2 3.2-4.8 g/dL Time of 1ST Reevaluation: 03:42 Reevaluation 1ST: Unchanged Patient Education/Counseling: Diagnosis, Treatment, Prognosis Family Education/Counseling: No Family Present Departure 1 Departure Time of Disposition: 05:04 Impression: Primary Impression: Acute coronary syndrome Additional Impression: Hypokalemia Disposition: 09 ADMITTED INPATIENT Admit to: [facility] Condition: Guarded Discharged With: Self Comments Chest Pain with Hypokalemia Chief Complaint: Left-sided chest pain and dry cough History of Present Illness: 68-year-old female presents to the ED with a 2-day history of left-sided parasternal chest pain accompanied by a dry cough. The patient has multiple cardiac risk factors including hypertension, diabetes, and hypercholesterolemia. Pain was significant enough to require morphine for management in the ED. Review of Systems: Constitutional: Denies fever, chills, or fatigue Cardiovascular: Positive for left-sided chest pain Respiratory: Positive for dry cough All other systems reviewed and negative Medications: Medications administered in ED: - Aspirin - Morphine Allergies: No known allergies Past Medical History: 1. Hypertension 2. Diabetes Mellitus 3. Hypercholesterolemia Lab Results: Potassium: 2.9 (Low) Component: 25 Other labs within normal limits Imaging and Other Relevant Results: No imaging results documented Medical Decision Making: Summary Statement: 68-year-old female with multiple cardiac risk factors presenting with chest pain and significant hypokalemia requiring admission for further evaluation. Problem List: 1. Chest pain 2. Hypokalemia 3. Chronic hypertension 4. Diabetes mellitus 5. Hypercholesterolemia Differential Diagnosis: 1. Acute coronary syndrome 2. Unstable angina 3. Hypokalemia-induced arrhythmia 4. Musculoskeletal chest pain 5. Pulmonary embolism ED Course: Patient presented with chest pain and dry cough. Labs revealed hypokalemia. Given aspirin and morphine for pain management. Decision made to admit for cardiac workup given multiple risk factors and ongoing symptoms. Assessment and Plan: 1. Chest Pain - Admit to telemetry unit for cardiac workup - Continue aspirin - Cardiac enzyme monitoring - ECG monitoring 2. Hypokalemia (K+ 2.9) - Initiate potassium replacement therapy - Serial potassium monitoring - Evaluate underlying cause 3. Chronic Medical Conditions (HTN, DM, Hypercholesterolemia) - Continue home medications - Inpatient medication reconciliation Billing Information: ICD-10: R07.89 - Other chest pain ICD-10: E87.6 - Hypokalemia ICD-10: R05 - Cough ICD-10: E11.9 - Type 2 diabetes mellitus without complications ICD-10: I10 - Essential (primary) hypertension ICD-10: E78.5 - Dyslipidemia Critical Care Note Critical Care Time?: Yes (35 min-critical care time only) Critical care comment: Total critical care time: Approximately 36 minutes Due to a high probability of clinically significant, life threatening deterioration, the patient required my highest level of preparedness to intervene emergently and I personally spent this critical care time directly and personally managing the patient. This critical care time included obtaining a history; examining the patient; pulse oximetry; ordering and review of studies; arranging urgent treatment with development of a management plan; evaluation of patient's response to treatment; frequent reassessment; and, discussions with other providers. This critical care time was performed to assess and manage the high probability of imminent, life-threatening deterioration that could result in multi-organ failure. It was exclusive of separately billable procedures and treating other patients. Stability Stability form required: No Heart Score Heart Score: Heart Score Response (Comments) Value History Moderate Suspicious 1 EKG Repolarization Disturb 1 Age >65 2 Risk Factors >3 or Hx ASHD 2 Troponin Normal limit 0 Total 6 I personally scribed for DG ALVARADO MD ([email or web address]) on 05/14/24 at 03:22. Electronically submitted by Chirag Butterfield ([email or web address]). DG ALVARADO MD May 14, 2024 03:22
[2024-05-14 04:04] LABS: Basophils # (auto) 0.1 10 ^3/uL (0-0.2); Basophils % (auto) 1.2 % (0.0-2.0); Eosinophils # (auto) 0.3 10 ^3/uL (0-0.8); Eosinophils % (auto) 3.4 % (0.0-7.0); Hematocrit 39.1 % (36.0-46.0); Hemoglobin 12.9 g/dL (12.2-16.2); Lymphocytes # (auto) 3.2 10 ^3/uL (0.4-5.4); Mean Corpuscular Hemoglobin 30.1 pg (28.0-32.0); Mean Corpuscular Hgb Conc. 33.1 g/dL (32.0-36.0); Mean Corpuscular Volume 90.9 fL (80.0-100.0); Monocytes # (auto) 0.4 10 ^3/uL (0-1.3); Monocytes % (auto) 5.3 % (0.0-12.0); Neutrophils % (auto) 50.1 % (37.0-80.0); Platelet Count (auto) 271 10^3/uL (140-450); Red Cell Distribution Width 15.5 % (11.8-14.3); White Blood Cell 8.1 10^3/uL (4.4-10.8)
--- NOTE | 2024-05-14 04:21 | DVH ---
CHEST RADIOGRAPH Indication: Cough Technique: Single frontal view of the chest was obtained Comparison: None FINDINGS: Lines and Tubes: None Lungs: No focal consolidation. Pleura: No effusion. No pneumothorax. Cardiomediastinal contours: Unremarkable Bones: No acute osseous abnormality. IMPRESSION: 1. No acute cardiopulmonary disease.
[2024-05-14 04:23] LABS: Alanine Aminotransferase 15 U/L (7-40); Albumin 4.2 g/dL (3.2-4.8); Alkaline Phosphatase 86 U/L (46-116); Anion Gap 10 (5-15); Aspartate Aminotransferase 18 U/L (13-40); BUN/Creatinine Ratio 11.3 (10.0-20.0); Bilirubin, Total 0.5 mg/dL (0.2-1.0); Blood Urea Nitrogen 9 mg/dL (9-23); Carbon Dioxide 24 mmol/L (20-31); Sodium 141 mmol/L (136-145); Total Protein 7.1 g/dL (5.7-8.2)
[2024-05-14 04:30] LABS: Chloride 107 mmol/L (98-107); Glucose 119 mg/dL (74-106); Potassium 2.9 mmol/L (3.5-5.1)
[2024-05-14] MEDS: MORPHINE SULFATE 4 MG/ML SYR/VIAL IV ONE (05:36)
[2024-05-14] MEDS: ASPirin 81 mg TAB PO ONE (05:40)
[2024-05-14] MEDS: POTASSIUM CHL 20 Meq TABLET PO ONE (05:40)
[2024-05-14] MEDS ORDERED: HYDROcodone-ACET 5/325MG TAB PO PRN (07:45)
[2024-05-14] MEDS ORDERED: PANT40T PO (07:49)
[2024-05-14] MEDS ORDERED: BENA5TAB9 PO (07:49)
--- NOTE | 2024-05-14 07:57 | DVHHP2 ---
History of Present Illness Reason for Visit: cough History of Present Illness Pretty Aranda is a 68-year-old female with past medical history of hypertension, hyperlipidemia, diabetes type 2, hypothyroidism, TIA, hysterectomy, right ankle fracture with surgery, polypectomy nose, and back surgery presents to the ED with cough x1 month. Patient reports productive clear to white phlegm. She denies any recent sick contacts, recent traveling, recent trauma or injury, fever, chills, lightheadedness, weakness, dizziness, chest pain, shortness breath, nausea, vomiting, diarrhea, or abdominal pain. Patient reports that she was supposed to be on statins by her primary but was never given a prescription. Cardiovascular: HTN, hyperipidemia RETAIL CASHIER: TIA Endocrine: Diabetes, Hypothyroidism Past Surgical History: Hysterectomy, Other (Right ankle fracture and surgery, back surgery, and polypectomy nose) Family History: CVA, DM, Hypertension Smoke: No ALCOHOL: none Drugs: None Lives: with Family Domestic Violence: Neg Review of Systems Respiratory: Cough Allergies: Coded Allergies: Sulfa Antibiotics (Verified Allergy, Unknown, 03/26/24) Medications Current Medications Medications Dose Ordered Sig/Paula Route Start Time Stop Time Status Last Admin Dose Admin Acetaminophen/ Hydrocodone Bitart 1 tab Q4HP PRN PO 05/14/24 07:45 UNV Enoxaparin Sodium 40 mg DAILY SC 05/14/24 10:00 UNV Acetaminophen 650 mg Q6HP PRN PO 05/14/24 07:45 UNV Amlodipine Besylate 10 mg DAILY PO 05/14/24 10:00 UNV Aspirin 81 mg DAILY PO 05/14/24 10:00 UNV Bupropion HCl 150 mg DAILY PO 05/14/24 10:00 UNV Citalopram Hydrobromide 20 mg DAILY PO 05/14/24 10:00 UNV Clopidogrel Bisulfate 75 mg DAILY PO 05/14/24 10:00 UNV Levothyroxine Sodium 100 mcg DAILY PO 05/14/24 10:00 UNV Losartan Potassium 10 mg DAILY PO 05/14/24 10:00 UNV Patient Own Medication 25 mg DAILY PO 05/14/24 10:00 UNV Patient Own Medication 600 mg BID PO 05/14/24 10:00 UNV Pantoprazole Sodium 40 mg DAILY PO 05/14/24 10:00 UNV Patient Own Medication 1 tab DAILY PO 05/14/24 10:00 UNV Exam Vital Signs Vital Signs Date Time Temp Pulse Resp B/P (MAP) Pulse Ox O2 Delivery O2 Flow Rate FiO2 05/14/24 05:36 82 18 146/80 05/14/24 05:30 98.0 98 98.0 05/14/24 05:30 Room Air* 0 21 General Appearance: Alert, Oriented X3, Cooperative, No acute distress HEENT: Atraumatic, PERRLA, EOMI, Mucous membr. moist/pink Respiratory: Clear to auscultation, Normal air movement Cardiovascular: Normal S1, Normal S2, No murmurs Abdominal: Normal bowel sounds, Soft, No tenderness, No hepatospenomegaly, No masses Extremities: No clubbing, No cyanosis, No tenderness/swelling Skin: No significant lesion Neuro: Normal speech, Strength at 5/5 X4 ext, Normal tone, Sensation intact Psych/Mental Status: Mental status NL, Mood NL Labs/Xrays Labs Test 05/14/24 05:07 05/14/24 03:45 Range/Units Troponin I High Sensitivity 25 </=34 ng/L White Blood Count 8.1 4.4-10.8 10^3/uL Red Blood Count 4.30 4.0-5.20 10^6/uL Hemoglobin 12.9 12.2-16.2 g/dL Hematocrit 39.1 36.0-46.0 % Mean Corpuscular Volume 90.9 80.0-100.0 fL Mean Corpuscular Hemoglobin 30.1 28.0-32.0 pg Mean Corpuscular Hemoglobin Concent 33.1 32.0-36.0 g/dL Red Cell Distribution Width 15.5 H 11.8-14.3 % Platelet Count 271 140-450 10^3/uL Mean Platelet Volume 8.7 6.9-10.8 fL Neutrophils (%) (Auto) 50.1 37.0-80.0 % Lymphocytes (%) (Auto) 40.0 10.0-50.0 % Monocytes (%) (Auto) 5.3 0.0-12.0 % Eosinophils (%) (Auto) 3.4 0.0-7.0 % Basophils (%) (Auto) 1.2 0.0-2.0 % Neutrophils # (Auto) 4.0 1.6-8.6 10 ^3/uL Lymphocytes # (Auto) 3.2 0.4-5.4 10 ^3/uL Monocytes # (Auto) 0.4 0-1.3 10 ^3/uL Eosinophils # (Auto) 0.3 0-0.8 10 ^3/uL Basophils # (Auto) 0.1 0-0.2 10 ^3/uL Nucleated Red Blood Cells 0.0 % Sodium Level 141 136-145 mmol/L Potassium Level 2.9 L 3.5-5.1 mmol/L Chloride Level 107 98-107 mmol/L Carbon Dioxide Level 24 20-31 mmol/L Anion Gap 10 5-15 Blood Urea Nitrogen 9 9-23 mg/dL Creatinine 0.80 0.550-1.02 mg/dL Glomerular Filtration Rate Calc 80 >90 mL/min BUN/Creatinine Ratio 11.3 10.0-20.0 Serum Glucose 119 H 74-106 mg/dL Calcium Level 10.0 8.7-10.4 mg/dL Total Bilirubin 0.5 0.2-1.0 mg/dL Aspartate Amino Transferase (AST) 18 13-40 U/L Alanine Aminotransferase (ALT) 15 7-40 U/L Alkaline Phosphatase 86 46-116 U/L B-Type Natriuretic Peptide 10.94 0-100 pg/mL Total Protein 7.1 5.7-8.2 g/dL Albumin 4.2 3.2-4.8 g/dL CHEST RADIOGRAPH Indication: Cough Technique: Single frontal view of the chest was obtained Comparison: None FINDINGS: Lines and Tubes: None Lungs: No focal consolidation. Pleura: No effusion. No pneumothorax. Cardiomediastinal contours: Unremarkable Bones: No acute osseous abnormality. IMPRESSION: 1. No acute cardiopulmonary disease. Assessment/Plan Assessment/Plan Assessment Hypokalemia Cough rule out influenza Morbid obesity History of hypertension History of hyperlipidemia History of diabetes type 2 History of hypothyroidism History of TIA Plan Ad[facility] to [facility] Antiemetics Pain management Chest x-ray noted EKG Troponin negative x2 BNP Influenza test COVID test Hemoglobin A1c ISS and Accu-Cheks Home medications reconciled Discussed plan of care with patient and nurse DVT prophylaxis-Lovenox PUD prophylaxis-Protonix, continue home medication Counseled patient on lifestyle modifications, diet, and exercise Plan discussed with: Patient My Orders Orders - KARY ROSARIO DIRECTOR OF RELIGIOUS LIFE Procedure Category Date Status Time Admit ADMIT 05/14/24 Transmitted 07:45 Allergies TERE 05/14/24 In Process 07:45 Code Status CODE 05/14/24 Transmitted 07:45 Hydrocodone-Acet PHA 05/14/24 Logged 5/325mg Tab ([place] 07:45 Complete Blood Count LAB 05/15/24 Verified 04:00 Comprehensive LAB 05/15/24 Verified Metabolic Panel 04:00 Cardiac DIET 05/14/24 Transmitted Diet-2gna,Lofat,Lochol Breakfast Acetaminophen Tablet PHA 05/14/24 Logged (Tylenol Tablet) 07:45 Enoxaparin Sodium PHA 05/14/24 Logged (Lovenox) 10:00 Amlodipine Tablet PHA 05/14/24 Logged (Norvasc Tablet) 10:00 Aspirin Enteric PHA 05/14/24 Logged Coated Tablet 10:00 Bupropion Tablet PHA 05/14/24 Logged (Wellbutrin Tablet) 10:00 Citalopram Tablet PHA 05/14/24 Logged (Celexa Tablet) 10:00 Clopidogrel Bisulfate PHA 05/14/24 Logged (Plavix) 10:00 Levothyroxine Tablet PHA 05/14/24 Logged (Synthroid Tablet) 10:00 Losartan Tablet PHA 05/14/24 Logged (Cozaar Tablet) 10:00 (Nf) Carvedilol PHA 05/14/24 Logged 10:00 (Nf) Gabapentin PHA 05/14/24 Logged 10:00 Pantoprazole Tablet PHA 05/14/24 Logged (Protonix Tablet) 10:00 (Nf) Benazepril Hcl PHA 05/14/24 Logged 10:00 Date of Service: May 14, 2024 Billing Provider: KARY ROSARIO Common Visit Codes: 78537-[id number] INP/OBS CARE (HIGH) KARY ROSARIO May 14, 2024 07:57
[2024-05-14] MEDS: LEVOTHYROXINE SODIUM 100 MCG TAB PO SCH (08:22)
[2024-05-14] MEDS ORDERED: DEXTROSE (50%) 50ML SYRG IV PRN (08:30)
[2024-05-14] MEDS ORDERED: BENAZEPRIL HCL 10 MG TAB PO SCH (10:00)
[2024-05-14] MEDS ORDERED: PATIENTS OWN MEDICATION (Gabapentin 600 MG) PO SCH (10:00)
[2024-05-14] MEDS ORDERED: CITALOPRAM HYDROBR 20 MG TAB PO SCH (10:00)
[2024-05-14] MEDS ORDERED: buPROPion HCL 75 MG TAB PO SCH (10:00)
[2024-05-14] MEDS ORDERED: PATIENTS OWN MEDICATION (Carvedilol 25 MG) PO SCH (10:00)
[2024-05-14] MEDS ORDERED: LOSARTAN POTASSIUM 25 MG TAB PO SCH (10:00)
[2024-05-14] MEDS: CLOPIDOGREL BISULFATE 75 MG TAB PO SCH (10:45)
[2024-05-14] MEDS: amLODIPine BESYLATE 5 MG TAB PO SCH (10:46)
[2024-05-14] MEDS: PANTOPRAZOLE 40 MG TAB PO SCH (10:46)
[2024-05-14] MEDS: ENOXAPARIN SOD 40 MG/0.4 ML SYRINGE SC SCH (10:46)
[2024-05-14 10:55] LABS: COVID19 ANTIGEN SOFIA FIA NEGATIVE (NEGATIVE); Rapid Influenza A Negative (Negative); Rapid Influenza B Negative (Negative)
[2024-05-14] MEDS ORDERED: POTASSIUM CHL 20MEQ/100ML 100 ML IV ONE (11:30)
[2024-05-14] MEDS ORDERED: LEVO112T4 PO (11:54)
[2024-05-14] MEDS: ACCU-CHEK COMFORT CURVE STRIP VI SCH (12:21)
[2024-05-14] MEDS: InsuLIN REG 1unit/0.01ml Soln (100units/ml) SC SCH (12:21)
[2024-05-14] MEDS ORDERED: guaiFENesin 200 MG/10 ML UD PO PRN (15:00)
[2024-05-14] MEDS ORDERED: cloNIDine HCL 0.1 MG TAB PO PRN (15:00)
[2024-05-14] MEDS ORDERED: IOHEXOL 300 MG/ML 100ML BOTTLE IJ ONE (15:04)
[2024-05-14 15:05] LABS: Urine Bacteria None Seen /hpf (None Seen)
[2024-05-14 15:24] LABS: Urine Blood Negative /uL (Negative); Urine Clarity Clear (Clear); Urine Color Yellow (Yellow); Urine Mucus FEW (None Seen); Urine Protein, UAD TRACE (Negative); Urine Specific Gravity 1.022 (1.001-1.035); Urine Squamous Epithelial Cell FEW /hpf (<5); Urine Urobilinogen 2 mg/dL (Negative); Urine WBC 4 /HPF (0-5)
[2024-05-14] MEDS: POTASSIUM EFFERVESENT TAB 25 MEQ PO ONE (15:44)
--- NOTE | 2024-05-14 15:44 | DVH ---
Procedure: CT CHEST WITH CONTRAST Reason for study/Clinical History: cough x 4 weeks Comparison Study: None available at time of dictation. Exam Date: 05/14/2024 03:16 PM Radiation Dose Information: CT Dose: CTDI volume is 30.15 mGy. Dose-length product is 998.46 mGy*cm Contrast: Type of contrast: Omnipaque 300 Contrast inject: 100 mL Contrast wasted:0 TECHNIQUE: After the uneventful administration of intravenous contrast intravenously, CT imaging was performed through the chest. Coronal and sagittal reformations were performed by the technologist. No MIP images or 3D reconstructions. FINDINGS: Lower Neck: Visualized portions of the thyroid gland are unremarkable. Aorta and Vasculature: Normal caliber of thoracic aorta. Lymph Nodes: No enlarged intrathoracic lymph nodes. Mediastinum: Heart size is normal. Small pericardial effusion around the left heart consider echocard iogram.. The esophagus is unremarkable. Lungs: No focal consolidation, pleural effusion or significant pneumothorax. No suspicious pulmonary nodule or mass. Musculoskeletal: No acute osseous abnormality. Upper abdomen: Limited portions of the upper abdomen are unremarkable. IMPRESSION: 1. Small pericardial effusion around the left heart consider echocardiogram. 2. No filling defects in the pulmonary arteries to suggest pulmonary emboli. 3. No enlargement of the pulmonary artery to suggest pulmonary artery hypertension. 4. No pulmonary airspace disease or pleural effusions. All CT scans at this medical facility are performed using dose modulation techniques as appropriate t o a performed exam including the following: Automated exposure control was utilized; adjustment of th e MA and/or KV according to patient size; and use of iterative reconstruction technique.
[2024-05-14 18:55] LABS: Chloride 106 mmol/L (98-107); Potassium 3.5 mmol/L (3.5-5.1); Sodium 140 mmol/L (136-145)
[2024-05-14 18:56] LABS: Anion Gap 8 (5-15); Carbon Dioxide 26 mmol/L (20-31)
[2024-05-14 18:57] LABS: Calcium 10.1 mg/dL (8.7-10.4)
[2024-05-14 19:20] LABS: BUN/Creatinine Ratio 7.2 (10.0-20.0); Blood Urea Nitrogen < 5 mg/dL (9-23); Glucose 120 mg/dL (74-106)
[2024-05-14] MEDS: ACETAMINOPHEN 325 MG TAB PO PRN (20:30)
--- NOTE | 2024-05-14 23:37 | DVHINCON2 ---
Date of service: May 14, 2024 Referring Physician Stan Castro MD Reason for Consultation Chronic cough. Snoring, possible WILLIAM. History of Present Illness A 68-year-old woman with past medical history of hypertension, hyperlipidemia, diabetes type 2, hypothyroidism, and TIA who presents to the ED with c/o cough x1 month. Patient reports cough productive of clear to white phlegm. She denies any recent sick contacts, trauma or injury, fever, chills, lightheadedness, chest pain, SOB or GI complaints. Patient reports that she was supposed to be on statins by her primary but was never given a prescription. Patient was admitted for further care and pulmonary consultation is requested for evaluation and management due to chronic cough and snoring. Review of Systems: 14-point review of systems negative unless otherwise noted above. Past Medical History: Hypertension, hyperlipidemia, diabetes type 2, hypothyroidism, and TIA Past Surgical History: Hysterectomy, right ankle fracture and surgery, nasal polypectomy and back surgery Medications: Reviewed. Allergies: Sulfa antibiotics. Family History: CVA, DM, Hypertension Social History: Nonsmoker. No alcohol or illicit drug use. Family History: Cerebrovascular accident (CVA) G8 MOTHER Hypertension G8 MOTHER G8 FATHER Allergies: Coded Allergies: Sulfa Antibiotics (Verified Allergy, Unknown, 03/26/24) Home Meds Active Scripts Ondansetron HCl (Ondansetron) 4 Mg Tab, 4 MG PO PRN PRN for 4 Days, #10 TAB Prov:SOY YI RESIDENT 03/29/24 Cephalexin Monohydrate (Cephalexin) 500 Mg Cap, 1 CAP PO QID for 3 Days, #40 CAP Prov:SOY YI RESIDENT 03/29/24 Reported Medications Levothyroxine Sodium (Levothyroxine Sodium) 112 Mcg Tab, 112 MCG PO QAM for 30 Days, MCG 05/14/24 Citalopram Hydrobromide (Citalopram Hydrobromide) 20 Mg Tab, 20 MG PO DAILY for 30 Days, MG 03/27/24 Clopidogrel Bisulfate (Plavix) 75 Mg Tab, 1 TAB PO DAILY, #90 TAB 1 Refill 03/27/24 Amlodipine Besylate (Amlodipine Besylate) 5 Mg Tab, 10 MG PO DAILY for 30 Days, MG 03/27/24 Discontinued Reported Medications Pantoprazole Sodium Sesquihydr (Pantoprazole Sodium) 40 Mg Tab, 1 TAB PO DAILY 05/14/24 Benazepril Hcl (Benazepril Hcl) 5 Mg Tab, 1 TAB PO DAILY 05/14/24 Aspirin (ASPIRIN 81) 81 Mg Tab, 81 MG OR DAILY, TAB 03/27/24 Gabapentin (Gabapentin) 600 Mg Tab, 600 MG PO BID for 30 Days, MG 03/27/24 Carvedilol (Carvedilol) 25 Mg Tab, 25 MG PO DAILY for 30 Days, MG 03/27/24 Losartan Potassium (Losartan Potassium) 25 Mg Tab, 10 MG PO DAILY for 30 Days, MG 03/27/24 Levothyroxine Sodium (SYNTHROID TABLET) 100 Mcg Tb, 1 TAB PO DAILY, #30 TAB 5 Refills 03/27/24 Bupropion Hcl (Bupropion Hcl) 100 Mg Tab, 150 MG PO DAILY for 30 Days, MG 03/27/24 Current Medications Current Medications Medications (Trade) Dose Ordered Sig/Paula Route PRN Reason Start Time Stop Time Status Last Admin Acetaminophen/ Hydrocodone Bitart ([place] 5/325MG Tab) 1 tab Q4HP PRN PO MODERATE PAIN (4-6 PAIN SCALE) 05/14/24 07:45 Enoxaparin Sodium (Lovenox) 40 mg DAILY SC 05/14/24 10:00 05/14/24 10:46 Acetaminophen (Tylenol Tablet) 650 mg Q6HP PRN PO PAIN SCALE 1-3 OR TEMP>100.4 05/14/24 07:45 05/14/24 20:30 Amlodipine Besylate (Norvasc Tablet) 10 mg DAILY PO 05/14/24 10:00 05/14/24 10:46 Aspirin (Ecotrin Enteric Coated Tablet) 81 mg DAILY PO 05/15/24 10:00 Bupropion HCl (Wellbutrin Tablet) 150 mg DAILY PO 05/14/24 10:00 05/14/24 08:32 DC Citalopram Hydrobromide (CeleXA TABLET) 20 mg DAILY PO 05/14/24 10:00 05/14/24 08:32 DC Clopidogrel Bisulfate (Plavix) 75 mg DAILY PO 05/14/24 10:00 05/14/24 10:45 Levothyroxine Sodium (Synthroid Tablet) 100 mcg DAILY@0600 PO 05/14/24 08:22 05/14/24 08:22 Losartan Potassium (Cozaar Tablet) 10 mg DAILY PO 05/14/24 10:00 05/14/24 08:32 DC Patient Own Medication 25 mg DAILY PO 05/14/24 10:00 05/14/24 08:32 DC Patient Own Medication 600 mg BID PO 05/14/24 10:00 05/14/24 08:32 DC Pantoprazole Sodium (Protonix Tablet) 40 mg DAILY PO 05/14/24 10:00 05/14/24 10:46 Benazepril HCl (Lotensin Tablet) 5 mg DAILY PO 05/14/24 10:00 05/14/24 08:33 DC Diagnostic Test (Pha) (Accu-Chek Comfort Curve T) 1 strip ACHS 05/14/24 11:30 05/14/24 21:46 Insulin Human Regular (InsuLIN R) ACHS SC 05/14/24 11:30 Dextrose 50 ml UD PRN IV Blood Sugar LESS THAN 60 05/14/24 08:30 Guaifenesin (Robitussin Plain Liquid) 200 mg Q6HP PRN PO FOR COUGH 05/14/24 15:00 Clonidine HCl (Catapres Tablet) 0.1 mg TID PRN PO SBP>160 05/14/24 15:00 Vital Signs Vital Signs Date Time Temp Pulse Resp B/P (MAP) Pulse Ox O2 Delivery O2 Flow Rate FiO2 05/14/24 21:00 97.4 91 17 165/76 (105) 98 97.4 05/14/24 11:45 Room Air* 0 21 Physical Exam Gen.: Patient lying in bed in no apparent distress. Breathing on room air. Head: Normocephalic, atraumatic. Eyes: EOMI/PERRLA. Ears: Normal hearing. Normal anatomy. Neck/trachea: Trachea midline, supple. Nose: Normal external anatomy. Mouth: Moist mucous membranes. Chest: Decreased air entry bilaterally. No wheezing or rhonchi. Cardiovascular: Positive S1, positive S2. Regular rate and rhythm. Abdomen: Positive bowel sounds in all 4 quadrants. Soft, non-tender, non- distended. : Deferred. Rectal: Deferred. Skin: Warm, dry. Intact. Extremities: 2+ radial pulses bilaterally. No lower extremity edema. Neuro: Awake, alert, oriented x3. No gross motor or sensory deficits. Cranial nerves II through XII intact. Gait not assessed. Labs/Diagnostic Data Labs Test 05/14/24 21:44 05/14/24 18:37 05/14/24 13:45 05/14/24 09:10 Range/Units POC Glucose 124 H 70-106 mg/dl Sodium Level 140 136-145 mmol/L Potassium Level 3.5 3.5-5.1 mmol/L Chloride Level 106 98-107 mmol/L Carbon Dioxide Level 26 20-31 mmol/L Anion Gap 8 5-15 Blood Urea Nitrogen < 5 L 9-23 mg/dL Creatinine 0.69 0.550-1.02 mg/dL Glomerular Filtration Rate Calc 94 >90 mL/min BUN/Creatinine Ratio 7.2 L 10.0-20.0 Serum Glucose 120 H 74-106 mg/dL Calcium Level 10.1 8.7-10.4 mg/dL Urine Color Yellow Yellow Urine Clarity Clear Clear Urine pH 6.0 5.0-9.0 Urine Specific [place] 1.022 1.001-1.035 Urine Protein Trace H Negative Urine Ketones Negative Negative Urine Blood Negative Negative /uL Urine Nitrite Negative Negative Urine Bilirubin Negative Negative Urine Urobilinogen 2 H Negative mg/dL Urine Leukocyte Esterase Negative Negative /uL Urine RBC 2 0 - 4 /hpf Urine Microscopic WBC 4 0-5 /HPF Urine Squamous Epithelial Cells Few <5 /hpf Urine Bacteria None seen None Seen /hpf Urine Mucus Few None Seen Urine Glucose Normal Normal mg/dL Influenza Type A Antigen Negative Negative Influenza Type B Antigen Negative Negative SARS-CoV-2 Antigen (Rapid) Negative NEGATIVE Test 05/14/24 05:07 05/14/24 03:45 Range/Units Troponin I High Sensitivity 25 </=34 ng/L White Blood Count 8.1 4.4-10.8 10^3/uL Red Blood Count 4.30 4.0-5.20 10^6/uL Hemoglobin 12.9 12.2-16.2 g/dL Hematocrit 39.1 36.0-46.0 % Mean Corpuscular Volume 90.9 80.0-100.0 fL Mean Corpuscular Hemoglobin 30.1 28.0-32.0 pg Mean Corpuscular Hemoglobin Concent 33.1 32.0-36.0 g/dL Red Cell Distribution Width 15.5 H 11.8-14.3 % Platelet Count 271 140-450 10^3/uL Mean Platelet Volume 8.7 6.9-10.8 fL Neutrophils (%) (Auto) 50.1 37.0-80.0 % Lymphocytes (%) (Auto) 40.0 10.0-50.0 % Monocytes (%) (Auto) 5.3 0.0-12.0 % Eosinophils (%) (Auto) 3.4 0.0-7.0 % Basophils (%) (Auto) 1.2 0.0-2.0 % Neutrophils # (Auto) 4.0 1.6-8.6 10 ^3/uL Lymphocytes # (Auto) 3.2 0.4-5.4 10 ^3/uL Monocytes # (Auto) 0.4 0-1.3 10 ^3/uL Eosinophils # (Auto) 0.3 0-0.8 10 ^3/uL Basophils # (Auto) 0.1 0-0.2 10 ^3/uL Nucleated Red Blood Cells 0.0 % Hemoglobin A1c 5.7 <5.7 % A1C Total Bilirubin 0.5 0.2-1.0 mg/dL Aspartate Amino Transferase (AST) 18 13-40 U/L Alanine Aminotransferase (ALT) 15 7-40 U/L Alkaline Phosphatase 86 46-116 U/L B-Type Natriuretic Peptide 10.94 0-100 pg/mL Total Protein 7.1 5.7-8.2 g/dL Albumin 4.2 3.2-4.8 g/dL Assessment Impression: Chronic cough Possible JLUIS inhibitor-related cough Morbid obesity Snoring Plan: On room air. Supplemental oxygen PRN CXR showed no acute abnormalities CT chest w/o contrast performed for evaluation of chronic cough. CT chest reviewed; small pericardial effusion around left heart. No e/o pulmonary embolism or pulmonary hypertension. No airspace disease or pleural effusions. Follow up Cardiology recs Antitussive for cough Pain control Avoid oversedation Recommend pulmonary function testing as outpatient Recommend outpatient sleep study to evaluate for WILLIAM. Diet and lifestyle modifications for weight reduction Obesity - complicates all care Monitor renal function. Monitor electrolytes. Supplement as necessary. Monitor ins and outs. DVT Prophylaxis GI prophylaxis Prognosis: Poor given multiple comorbidities Rest of plan per hospitalist and other consultants. Thank you, Dr. Castro, for allowing me to participate in this patient's care. Further recommendations will depend on the patient's clinical course. Please do not hesitate to contact me if you have any questions or concerns. This medical document was created using an electronic medical record system with [employer] computerized dictation system. Although this document has been carefully reviewed, there may still be some phonetic and typographical errors. These areas are purely typographical due to imperfections of the software programs and do not reflect any compromise in the patient's medical care. Plan discussed with: Patient, Other (FRANCOIS Curry/Dr. Castro) LANE HUNG MD May 14, 2024 23:37
[2024-05-15 01:00] VITALS: BP 164/76; PULSE 86; RESP 17; TEMP 98.3; O2SAT 97
[2024-05-15 05:00] VITALS: BP 158/67; PULSE 84; RESP 16; TEMP 98.2; O2SAT 97
[2024-05-15 06:51] LABS: Basophils # (auto) 0.1 10 ^3/uL (0-0.2); Basophils % (auto) 1.4 % (0.0-2.0); Eosinophils # (auto) 0.3 10 ^3/uL (0-0.8); Eosinophils % (auto) 5.4 % (0.0-7.0); Hematocrit 37.5 % (36.0-46.0); Hemoglobin 12.7 g/dL (12.2-16.2); Lymphocytes # (auto) 2.5 10 ^3/uL (0.4-5.4); Lymphocytes % (auto) 41.5 % (10.0-50.0); Mean Corpuscular Hemoglobin 30.5 pg (28.0-32.0); Mean Corpuscular Hgb Conc. 33.9 g/dL (32.0-36.0); Mean Corpuscular Volume 89.9 fL (80.0-100.0); Monocytes # (auto) 0.5 10 ^3/uL (0-1.3); Monocytes % (auto) 7.5 % (0.0-12.0); Neutrophils # (auto) 2.7 10 ^3/uL (1.6-8.6); Neutrophils % (auto) 44.2 % (37.0-80.0); Nucleated Red Blood Cells % 0.1 %; Platelet Count (auto) 258 10^3/uL (140-450); Red Blood Cells 4.17 10^6/uL (4.0-5.20); Red Cell Distribution Width 15.9 % (11.8-14.3); White Blood Cell 6.1 10^3/uL (4.4-10.8)
[2024-05-15 07:02] LABS: Alanine Aminotransferase 14 U/L (7-40); Alkaline Phosphatase 81 U/L (46-116); Anion Gap 9 (5-15); Aspartate Aminotransferase 17 U/L (13-40); BUN/Creatinine Ratio 9.7 (10.0-20.0); Carbon Dioxide 27 mmol/L (20-31); Glucose 103 mg/dL (74-106); Magnesium 1.9 mg/dL (1.6-2.6); Sodium 143 mmol/L (136-145); Total Protein 6.6 g/dL (5.7-8.2)
[2024-05-15 07:03] LABS: Bilirubin, Total 0.6 mg/dL (0.2-1.0); Blood Urea Nitrogen 6 mg/dL (9-23); Chloride 107 mmol/L (98-107); Potassium 2.9 mmol/L (3.5-5.1)
[2024-05-15 08:00] VITALS: PULSE 81
[2024-05-15 08:10] VITALS: RESP 16; O2SAT 98
[2024-05-15 09:00] VITALS: BP 145/59; PULSE 88; RESP 16; TEMP 98; O2SAT 97
[2024-05-15] MEDS: ASPirin-EC 81 mg tab PO SCH (11:19)
[2024-05-15 13:00] VITALS: BP 145/90; PULSE 89; RESP 16; TEMP 98.1; O2SAT 97
--- NOTE | 2024-05-15 16:06 | DVHDS2 ---
Discharge Summary Date of Admission May 14, 2024 at 07:45 Date of Discharge: May 15, 2024 Labs/Diagnostic Data: Laboratory Results Test 05/15/24 12:05 05/15/24 05:12 05/14/24 13:45 05/14/24 09:10 POC Glucose 93 mg/dl (70-106) White Blood Count 6.1 10^3/uL (4.4-10.8) Red Blood Count 4.17 10^6/uL (4.0-5.20) Hemoglobin 12.7 g/dL (12.2-16.2) Hematocrit 37.5 % (36.0-46.0) Mean Corpuscular Volume 89.9 fL (80.0-100.0) Mean Corpuscular Hemoglobin 30.5 pg (28.0-32.0) Mean Corpuscular Hemoglobin Concent 33.9 g/dL (32.0-36.0) Red Cell Distribution Width 15.9 % (11.8-14.3) Platelet Count 258 10^3/uL (140-450) Mean Platelet Volume 8.9 fL (6.9-10.8) Neutrophils (%) (Auto) 44.2 % (37.0-80.0) Lymphocytes (%) (Auto) 41.5 % (10.0-50.0) Monocytes (%) (Auto) 7.5 % (0.0-12.0) Eosinophils (%) (Auto) 5.4 % (0.0-7.0) Basophils (%) (Auto) 1.4 % (0.0-2.0) Neutrophils # (Auto) 2.7 10 ^3/uL (1.6-8.6) Lymphocytes # (Auto) 2.5 10 ^3/uL (0.4-5.4) Monocytes # (Auto) 0.5 10 ^3/uL (0-1.3) Eosinophils # (Auto) 0.3 10 ^3/uL (0-0.8) Basophils # (Auto) 0.1 10 ^3/uL (0-0.2) Nucleated Red Blood Cells 0.1 % Sodium Level 143 mmol/L (136-145) Potassium Level 2.9 mmol/L (3.5-5.1) Chloride Level 107 mmol/L (98-107) Carbon Dioxide Level 27 mmol/L (20-31) Anion Gap 9 (5-15) Blood Urea Nitrogen 6 mg/dL (9-23) Creatinine 0.62 mg/dL (0.550-1.02) Glomerular Filtration Rate Calc 96 mL/min (>90) BUN/Creatinine Ratio 9.7 (10.0-20.0) Serum Glucose 103 mg/dL (74-106) Calcium Level 10.0 mg/dL (8.7-10.4) Magnesium Level 1.9 mg/dL (1.6-2.6) Total Bilirubin 0.6 mg/dL (0.2-1.0) Aspartate Amino Transferase (AST) 17 U/L (13-40) Alanine Aminotransferase (ALT) 14 U/L (7-40) Alkaline Phosphatase 81 U/L (46-116) Total Protein 6.6 g/dL (5.7-8.2) Albumin 4.0 g/dL (3.2-4.8) Urine Color Yellow (Yellow) Urine Clarity Clear (Clear) Urine pH 6.0 (5.0-9.0) Urine Specific [place] 1.022 (1.001-1.035) Urine Protein Trace (Negative) Urine Ketones Negative (Negative) Urine Blood Negative /uL (Negative) Urine Nitrite Negative (Negative) Urine Bilirubin Negative (Negative) Urine Urobilinogen 2 mg/dL (Negative) Urine Leukocyte Esterase Negative /uL (Negative) Urine RBC 2 /hpf (0 - 4) Urine Microscopic WBC 4 /HPF (0-5) Urine Squamous Epithelial Cells Few /hpf (<5) Urine Bacteria None seen /hpf (None Seen) Urine Mucus Few (None Seen) Urine Glucose Normal mg/dL (Normal) Influenza Type A Antigen Negative (Negative) Influenza Type B Antigen Negative (Negative) SARS-CoV-2 Antigen (Rapid) Negative (NEGATIVE) Test 05/14/24 05:07 05/14/24 03:45 Troponin I High Sensitivity 25 ng/L (</=34) Hemoglobin A1c 5.7 % A1C (<5.7) B-Type Natriuretic Peptide 10.94 pg/mL (0-100) Other Laboratory Tests 05/15/24 05:12 Brief Hx & Hospital Course: 68-year-old female with a known history of hypertension, dyslipidemia, diabetes type 2, hypothyroidism, previous history of TIA presented to the hospital with a chronic cough for one month. Patient also complaining of some whitish phlegm. Patient was eventually admitted chest x-ray shows no evidence of acute pathology. CT chest shows no evidence of any pulmonary opacities. Patient's probably has sleep apnea. Also patient has used JLUIS inhibitor in the past which was discontinued. Patient needs follow up with Dr. Allan in 1-2 weeks for pulmonary function testing and sleep study. CT chest shows small pericardial effusion, outpatient 2D echo will be arranged per PCP. Also patient needs to follow up with Dr. Allan who can arrange 2D echo as an outpatient. Condition at Discharge: Stable Final Diagnosis/Problems List 1. Chronic cough suspect JLUIS-inhibitor related, outpatient follow up with Dr. Allan for pulmonary functioning testing and sleep study 2. Hypertension 3. Dyslipidemia 4. Morbid obesity class two Discharge Disposition: Home SNF Discharge Will this Physician continue t: No Discharge Instruct/Medications Diet: Cardiac 2g Na,low cholest Activity: No Restrictions, As Tolerated Follow Up/Referral: Outpatient follow up with the PCP Outpatient 2D echo and cardiology appointment by the PCP Follow up with Dr. Allan in 1-2 weeks for pulmonary function testing Medications: Resume home medications Discharge Statement: "Patient was advised to return to the ER or call 911 if any headaches, dizziness, shortness of breath, chest pain, abdominal pain, bleeding, fevers, or worsening of medical condition. Patient was counseled about treatment plan, medications, possible side effects, patientverbalized understanding. All questions were answered to the best of my ability. This discharge took greater then 30 minutes in planning, reviewing documentation, counseling the patient, and discussing with other team members." ASSESSMENT ASSESSMENT Assessment 1. Chronic cough suspect JLUIS-inhibitor related, outpatient follow up with Dr. Allan for pulmonary functioning testing and sleep study 2. Hypertension 3. Dyslipidemia 4. Morbid obesity class two Date of Service: May 15, 2024 Billing Provider: PAPITO VARMA MD Common Visit Codes: 26159-TGC/OBS DISCH DAY >30min PAPITO VARMA MD May 15, 2024 16:06
--- NOTE | 2024-05-16 14:48 | DVHSR ---
APPROVED REPORT EXAM: LIMITED Two-dimensional and M-mode echocardiogram with Doppler and color Doppler. Blood Pressure: 158/67 mmHg INDICATION ro pericardial eff RISK FACTORS Obesity: Height: 5'8, Weight: 259 DIMENSIONS LVDd4.3 (3.8-5.7cm)LA (2D)4.2 (1.9-4.0cm)Aortic Root2.9 (2.0-3.7cm) LVDs2.9 (2.5-4.0cm)LA (MM) (1.9-4.0cm)Aortic Cusp Exc1.1 (1.5-2.0cm) EF (%) 60.0 (55-70%)Rt. Atrium (1.9-4.0cm)Asc. Aorta cm IVSd1.1 (0.7-1.1cm)RV (D) (1.8-2.4cm) PWd1.1 (0.7-1.1cm) Mitral Valve MitralMitral Stenosis E wave0.54m/sMV Mean GR.mmHg A wave0.99m/sMV Peak GR.101mmHg E/A ratio0.52D MVAcm2 DECEL [id number] 1/2 [place] Aortic Valve Aortic ValveAortic Stenosis V11.18m/Ariana Mean GR.6mmHg V21.63m/Ariana Peak GR.11mmHg LVOT Diameter1.9 (1.8-2.4cm)Doppler AVA2.05cm2 Pulmonic Valve V20.92m/s Tricuspid Valve TR Velocity2.27m/s [id number] Other Information Quality : Technically LimitedRhythm : Technically limited study due to patient position.body habitus.patient moving. Conclusion Sinus rhythm Left atrial enlargement with concentric LVH. Sigmoid septum. Valves appear to be structurally normal. EF of 65% with normal RV function. Dopplers unremarkable. Small pericardial effusion not hemodynamically significant. No masses or vegetations discernible.
== END 2024-05-15 16:40 | disposition home or self-care (01) | DRG 204 ==
LOC: ER 03:03 → OVERFLOW 07:45 → TELE-EAST 11:49
PROVIDERS: ADMIT Internal Medicine; ATTEND Internal Medicine
DX: R05.9 Cough, unspecified (principal); I24.9 Acute ischemic heart disease, unspecified; E66.01 Morbid (severe) obesity due to excess calories; E87.6 Hypokalemia; Z20.822 Contact with and (suspected) exposure to COVID-19; G47.30 Sleep apnea, unspecified; E78.00 Pure hypercholesterolemia, unspecified; E11.9 Type 2 diabetes mellitus without complications; E03.9 Hypothyroidism, unspecified; I10 Essential (primary) hypertension; T46.4X5A Adverse effect of angiotensin-converting-enzyme inhibitors, initial encounter; Z82.3 Family history of stroke; Z82.49 Family history of ischemic heart disease and other diseases of the circulatory system; Z83.3 Family history of diabetes mellitus; Z86.73 Personal history of transient ischemic attack (TIA), and cerebral infarction without residual deficits; Z90.710 Acquired absence of both cervix and uterus; Z88.2 Allergy status to sulfonamides; Z79.82 Long term (current) use of aspirin; Z79.899 Other long term (current) drug therapy; Y92.89 Other specified places as the place of occurrence of the external cause
CPT/HCPCS: 36415; 71045; 71260; 80048; 80053; 81001; 82962; 83036; 83735; 83880; 84484; 85025; 87081; 87426; 87804; 93306; 99291; G0378